=== PATIENT | male | born 1980 | race Caucasian/White ===

== ENCOUNTER 2018-01-17 19:01 | Inpatient (IN) | payer OTHER ==
--- NOTE | 2018-01-17 20:24 | ED ---
General Adult HPI - General Chief complaint: Extremity Problem,Nontraumatic Stated complaint: left great toe infection/diabetic Time Seen by Provider: 01/17/18 20:16 Source: patient, RN notes reviewed, old records reviewed Mode of arrival: ambulatory Limitations: no limitations - History of Present Illness Initial comments: This is a 37-year-old male to the ER for evaluation. Patient resents today for evaluation regards to foot pain, patient is a known diabetic with known left foot pain. Patient has foot ulcer for a year that has not been healing. Recently his left great toe is significantly swollen with redness and pain up his leg. Patient denies fevers. He has been receiving outpatient treatment with no improvement - Related Data Home Medications Medication Instructions Recorded Confirmed Acarbose [Precose] 25 mg PO BID 01/17/18 01/17/18 Aspirin EC [Ecotrin Low Dose] 81 mg PO DAILY 01/17/18 01/17/18 Carvedilol [Coreg] 25 mg PO BID 01/17/18 01/17/18 Diclofenac Sodium [Voltaren] 75 mg PO BID 01/17/18 01/17/18 Lisinopril [Zestril] 10 mg PO BID 01/17/18 01/17/18 [place]-3 Fatty Acids/Fish Oil [Fish 1 cap PO DAILY 01/17/18 01/17/18 Oil 1,000 mg Softgel] Omeprazole 20 mg PO DAILY 01/17/18 01/17/18 glipiZIDE [Glucotrol] 20 mg PO BID 01/17/18 01/17/18 metFORMIN HCL 1,000 mg PO BID 01/17/18 01/17/18 Allergies Allergy/AdvReac Type Severity Reaction Status Date / Time No Known Allergies Allergy Verified 01/17/18 20:19 Review of Systems ROS Statement: Those systems with pertinent positive or pertinent negative responses have been documented in the HPI. ROS Other: All systems not noted in ROS Statement are negative. Past Medical History Past Medical History: Diabetes Mellitus, Myocardial Infarction ([place]) History of Any Multi-Drug Resistant Organisms: None Reported Past Surgical History: Heart Catheterization Additional Past Surgical History / Comment(s): left knee Past Psychological History: No Psychological Hx Reported Smoking Status: Current every day smoker Past Alcohol Use History: None Reported Past Drug Use History: None Reported General Exam - General Exam Comments Initial Comments: Significant left great toe ulcer with surrounding cellulitis proximal, significant edema of left great toe Limitations: no limitations General appearance: alert, in no apparent distress Head exam: Present: atraumatic, normocephalic, normal inspection Eye exam: Present: normal appearance, PERRL, EOMI. Absent: scleral icterus, conjunctival injection, periorbital swelling ENT exam: Present: normal exam, mucous membranes moist Neck exam: Present: normal inspection. Absent: tenderness, meningismus, lymphadenopathy Respiratory exam: Present: normal lung sounds bilaterally. Absent: respiratory distress, wheezes, rales, rhonchi, stridor Cardiovascular Exam: Present: regular rate, normal rhythm, normal heart sounds. Absent: systolic murmur, diastolic murmur, rubs, gallop, clicks GI/Abdominal exam: Present: soft, normal bowel sounds. Absent: distended, tenderness, guarding, rebound, rigid Extremities exam: Present: normal inspection, full ROM, normal capillary refill. Absent: tenderness, pedal edema, joint swelling, calf tenderness Back exam: Present: normal inspection Neurological exam: Present: alert, oriented X3, CN II-XII intact Psychiatric exam: Present: normal affect, normal mood Skin exam: Present: warm, dry, intact, normal color. Absent: rash Course Vital Signs 01/17/18 19:38 Temperature 97.9 F Pulse Rate 83 Respiratory 18 Rate Blood Pressure 143/76 O2 Sat by Pulse 97 Oximetry Medical Decision Making - Medical Decision Making 37 male positive left foot ulcer with cellulitis felt outpatient treatment will admit for IV antibiotics and wound care - Radiology Data Radiology results: report reviewed (X-ray left foot negative for acute disease) , image reviewed Disposition Clinical Impression: Diabetic ulcer of left great toe, Cellulitis Disposition: ADMITTED IP TO THIS HOSP Condition: Good Is patient prescribed a controlled substance at d/c from ED?: No Referrals: Meek Warner Jr, [Primary Care Provider] - 1-2 days
[2018-01-17] MEDS ORDERED: VANCOMYCIN IV PER PHARMACY 1 EACH MISC MISCELLANE PRN (20:43)
[2018-01-17] MEDS ORDERED: SODIUM CHLORIDE 0.9% 1,000 ML IV STA (20:43)
[2018-01-17] MEDS ORDERED: VANCOMYCIN 2,500 MG in SODIUM CHLORIDE 0.9% 500 ML IVPB STA (20:49)
--- NOTE | 2018-01-17 21:08 | XR ---
EXAMINATION TYPE: XR foot complete LT DATE OF EXAM: 01/17/2018 COMPARISON: NONE HISTORY: Pain TECHNIQUE: 3 views FINDINGS: There are plantar and Achilles calcaneal spurs. Metatarsals are intact. I see no fracture n or dislocation. IMPRESSION: There is minimal spurring at the lateral first MP joint. No evidence of osteomyelitis. Ca lcaneal spurring.
[2018-01-17 21:56] LABS: Basophils # (A) 0.1 k/uL (0-0.2); Basophils % (A) 1 %; Eosinophils # (A) 0.4 k/uL (0-0.7); Eosinophils % (A) 5 %; HCT 41.2 % (39.0-53.0); HGB 13.5 gm/dL (13.0-17.5); Lymphocytes # (A) 2.2 k/uL (1.0-4.8); Lymphocytes % (A) 26 %; MCH 30.5 pg (25.0-35.0); MCHC 32.8 g/dL (31.0-37.0); MCV 92.8 fL (80.0-100.0); Mean Platelet Volume 7.5; Monocytes # (A) 0.7 k/uL (0-1.0); Monocytes % (A) 8 %; Neutrophils # (A) 4.9 k/uL (1.3-7.7); Neutrophils % (A) 58 %; Platelet Count 183 k/uL (150-450); RBC 4.44 m/uL (4.30-5.90); RDW 13.9 % (11.5-15.5); WBC 8.3 k/uL (3.8-10.6)
[2018-01-17 22:00] LABS: Partial Thromboplastin Time 22.2 sec (22.0-30.0); Prothrombin Time 9.8 sec (9.0-12.0)
[2018-01-17 22:01] LABS: ALT 75 U/L (21-72); AST 47 U/L (17-59); Alkaline Phosphatase 84 U/L (38-126); Anion Gap 9 mmol/L; Blood Urea Nitrogen 22 mg/dL (9-20); Calcium 9.3 mg/dL (8.4-10.2); Carbon Dioxide 23 mmol/L (22-30); Chloride 104 mmol/L (98-107); Glucose 269 mg/dL (74-99); Magnesium 1.5 mg/dL (1.6-2.3); Phosphorus 3.6 mg/dL (2.5-4.5); Potassium 4.3 mmol/L (3.5-5.1); Sodium 136 mmol/L (137-145); Total Bilirubin 0.3 mg/dL (0.2-1.3); Total Protein 6.4 g/dL (6.3-8.2)
[2018-01-17 22:21] LABS: Creatine Kinase 490 U/L (55-170)
[2018-01-17 22:33] LABS: Troponin I <0.012 ng/mL (0.000-0.034)
[2018-01-17 22:45] LABS: Creatine Kinase MB 3.2 ng/mL (0.0-2.4)
[2018-01-17 23:41] LABS: Glucose,Whole Blood 186 mg/dL (75-99)
[2018-01-17 23:50] VITALS: BMI 40.2
[2018-01-18] MEDS: VANCOMYCIN 2,000 MG in SODIUM CHLORIDE 0.9% 500 ML IVPB SCH ×3 (05:29→21:00)
[2018-01-18 07:15] LABS: Glucose,Whole Blood 189 mg/dL (75-99)
[2018-01-18] MEDS ORDERED: ACETAMINOPHEN TAB 325 MG TAB PO PRN (08:50)
[2018-01-18] MEDS ORDERED: Magnesium Replacement Protocol 1 EACH MISC MISCELLANE PRN (08:51)
[2018-01-18] MEDS ORDERED: NON-FORMULARY DRUG (Omega-3 Fatty Acids/Fish Oil [Fish Oil 1,000 Mg Softgel] 1 CAP) PO SCH (09:00)
[2018-01-18] MEDS: ETODOLAC 400 MG TAB PO SCH ×2 (09:45→21:59)
[2018-01-18] MEDS: ACARBOSE 25 MG TAB PO SCH ×2 (09:46→21:59)
[2018-01-18] MEDS: PANTOPRAZOLE 40 MG TABLET PO SCH (09:46)
[2018-01-18] MEDS: glipiZIDE 10 MG TAB PO SCH ×2 (09:47→17:17)
[2018-01-18] MEDS: LISINOPRIL 10 MG TAB PO SCH ×2 (09:47→21:59)
[2018-01-18] MEDS: ASPIRIN 81 MG PO SCH (09:47)
[2018-01-18] MEDS: metFORMIN 500 MG TAB PO SCH ×2 (09:47→17:55)
[2018-01-18] MEDS: CARVEDILOL 12.5 MG TAB PO SCH ×2 (09:49→17:17)
[2018-01-18] MEDS: MAGNESIUM SULFATE-D5W PMX 1 GM in DEXTROSE/WATER 1 100ML.BAG IVPB SCH ×2 (09:50→11:25)
[2018-01-18 11:53] LABS: Glucose,Whole Blood 294 mg/dL (75-99)
[2018-01-18] MEDS: INSULIN ASPART 100 UNIT/ML 1 ML 10 ML VIAL SQ SCH ×3 (12:15→20:59)
--- NOTE | 2018-01-18 14:47 | P.HPIM ---
History of Present Illness H&P Date: 01/18/18 Chief Complaint: left foot pain and swelling 37-year-old male who presented to the emergency room with a chief complaint of increased redness, swelling, and pain to his left great toe. Patient states he has had a non-healing wound to his toe since April 2017, but over the last few days it became more painful and red so he presented to the hospital for further evaluation. Patient denies fever or chills. Denies shortness of breath. Denies chest pain. Denies nausea or vomiting. The patient has a history of diabetes mellitus and myocardial infarction in 2005. He is a current cigarette smoker and reports smoking 10 cigarettes a day. X-ray left foot: Minimal spurring at the lateral first MP joint. No evidence of osteomyelitis. Calcaneal spurring. Laboratory data: WBC 8.3. Hemoglobin 13.5. Platelet count 183. Sodium 136. Potassium 4.3. BUN 22. Creatinine 0.99. Glucose 269. Phosphorus 3.6. Magnesium 1.5. AST 47. ALT 75. Total creatinine kinase 490. Troponin negative 1. The patient was started on vancomycin and IV fluids and admitted to the hospital under the care of Dr. Bailey. Review of Systems Those systems with pertinent positive or pertinent negative responses have been documented in the HPI Past Medical History Past Medical History: Diabetes Mellitus, Myocardial Infarction ([place]) Last Myocardial Infarction Date:: 2005 History of Any Multi-Drug Resistant Organisms: None Reported Past Surgical History: Heart Catheterization Additional Past Surgical History / Comment(s): left knee Past Psychological History: No Psychological Hx Reported Smoking Status: Current some day smoker Past Alcohol Use History: None Reported Past Drug Use History: None Reported - Past Family History Father Family Medical History: Congestive Heart Failure (CHF), CVA/TIA, Diabetes Mellitus Medications and Allergies Home Medications Medication Instructions Recorded Confirmed Type Acarbose [Precose] 25 mg PO BID 01/17/18 01/17/18 History Aspirin EC [Ecotrin Low Dose] 81 mg PO DAILY 01/17/18 01/17/18 History Carvedilol [Coreg] 25 mg PO BID 01/17/18 01/17/18 History Diclofenac Sodium [Voltaren] 75 mg PO BID 01/17/18 01/17/18 History Lisinopril [Zestril] 10 mg PO BID 01/17/18 01/17/18 History [place]-3 Fatty Acids/Fish Oil [Fish 1 cap PO DAILY 01/17/18 01/17/18 History Oil 1,000 mg Softgel] Omeprazole 20 mg PO DAILY 01/17/18 01/17/18 History glipiZIDE [Glucotrol] 20 mg PO BID 01/17/18 01/17/18 History metFORMIN HCL 1,000 mg PO BID 01/17/18 01/17/18 History Allergies Allergy/AdvReac Type Severity Reaction Status Date / Time No Known Allergies Allergy Verified 01/17/18 20:19 Physical Exam Vitals: Vital Signs Temp Pulse Pulse Resp BP BP Pulse Ox 01/18/18 05:21 97.6 F 68 16 144/75 97 01/18/18 00:00 16 01/17/18 23:26 97.8 F 70 16 144/65 95 01/17/18 23:19 97.9 F 74 17 150/72 96 01/17/18 19:38 97.9 F 83 18 143/76 97 Intake and Output 01/17/18 01/18/18 01/18/18 22:59 06:59 14:59 Other: Voiding Method Toilet Toilet # Voids 2 Weight 146.51 kg 146 kg GENERAL: This is a 37-year-old male in no apparent distress at the time of examination. Pleasant and cooperative. HEENT: Head is atraumatic, normocephalic. Pupils are equal, round, and reactive to light. Sclerae anicteric. Conjunctivae are clear. Mucus membranes of the mouth are moist. Neck is supple. RESPIRATORY: Clear to ausculation. No wheezes, rales, or rhonchi. No use of accessory muscles. Patient maintaining oxygen saturation greater than 92%. No chest wall tenderness is noted on palpation or with deep breathing. CARDIOVASCULAR: Regular rate and rhythm. S1 and S2 noted. No systolic or diastolic murmur auscultated. No JVD noted. No S3 or S4 noted. GASTROINTESTINAL: No distention noted. Abdomen soft and round. Normal active bowel sounds auscultated x 4 quadrants. No pain or tenderness noted upon palpation. INTEGUMENTARY: Erythema to left great toe. Small open wound to plantar surface of left great toe. Small amount of milky drainage noted. No cyanosis. No jaundice. No rashes noted. EXTREMITIES: 2+ peripheral pulses. No calf tenderness noted. NEUROLOGIC: Cranial nerves II-XII intact. PSYCHIATRIC: Awake, alert, and oriented X 3. Appropriate affect. Intact judgement and insight. Results CBC & Chem 7: 01/17/18 21:15 01/17/18 21:15 Labs: Abnormal Lab Results - Last 24 Hours (Table) 01/17/18 01/17/18 01/17/18 Range/Units 21:15 21:15 23:39 Sodium 136 L (137-145) mmol/L BUN 22 H (9-20) mg/dL Glucose 269 H (74-99) mg/dL POC Glucose (mg/dL) 186 H (75-99) mg/dL Magnesium 1.5 L (1.6-2.3) mg/dL ALT 75 H (21-72) U/L Total Creatine Kinase 490 H (55-170) U/L CK-MB (CK-2) 3.2 H* (0.0-2.4) ng/mL 01/18/18 Range/Units 07:11 Sodium (137-145) mmol/L BUN (9-20) mg/dL Glucose (74-99) mg/dL POC Glucose (mg/dL) 189 H (75-99) mg/dL Magnesium (1.6-2.3) mg/dL ALT (21-72) U/L Total Creatine Kinase (55-170) U/L CK-MB (CK-2) (0.0-2.4) ng/mL Thrombosis Risk Factor Assmnt - Choose All That Apply Any of the Below Risk Factors Present?: Yes Each Factor Represents 1 point: Obesity (BMI >25) Thrombosis Risk Factor Assessment Total Risk Factor Score: 1 Thrombosis Risk Factor Assessment Level: Low Risk Assessment and Plan Plan: ASSESSMENT: Diabetic ulcer of left great toe, infected, r/o osteomyelitis Diabetes mellitus, type II Hyperglycemia, secondary to uncontrolled diabetes mellitus Myocardial infarction in 2005 Morbid obesity: BMI 40.2 Nicotine dependence, patient is a current cigarette smoker Hypomagnesemia PLAN: Consult infectious disease, Dr. Guaman Continue antibiotics Continue IV fluids Replace magnesium. Repeat in AM Consult medical educator and dietitian secondary to uncontrolled diabetes EVELIO of lower extremity MRI of left foot with contrast Obtain wound culture of left great toe Daily dressing changes to left great toe: Aquacel silver to open wound, silvadene to reddened areas, and then wrap with gauze Consult social work to assist patient in applying for insurance Home meds as appropriate Monitor labs GI prophylaxis: Protonix 40 mg PO Daily DVT prophylaxis: SCDs to bilateral LE Monitor vital signs and address as appropriate Discharge planning: Patient to return home when stable Further recommendations pending patient's course Nurse practitioner note has been reviewed by physician. Signing provider agrees with the documented findings, assessment, and plan of care.
[2018-01-18] MEDS: NICOTINE 21MG/24HR PATCH TRANSDERM SCH (15:14)
[2018-01-18] MEDS: SODIUM CHLORIDE 0.9% 1,000 ML IV SCH (15:50)
[2018-01-18 16:59] LABS: Glucose,Whole Blood 212 mg/dL (75-99)
[2018-01-18 18:45] LABS: Hemoglobin A1C 9.8 % (4.0-6.0)
[2018-01-18 20:00] LABS: Glucose,Whole Blood 247 mg/dL (75-99)
--- NOTE | 2018-01-18 22:31 | MR ---
EXAMINATION TYPE: MR foot LT wo/w con DATE OF EXAM: 01/18/2018 COMPARISON: Left foot x-ray January 17, 2018 HISTORY: Pain and non-healing wound at the LT great toe x7 months, worse the past 2 days. CONTRAST: Standard multiplanar, multisequence MRI departmental protocol utilizing 14.5 mL intravenous Gadavist gadolinium contrast. FINDINGS: There is heterogeneous subcutaneous edema in the first toe beginning at metacarpal head ext ending through the proximal and distal phalanx. There is ulceration along the plantar surface seen be st sagittal image 18 series 401. The vitamin E marker is placed along the medial plantar surface caus ing artifacts seen best axial series 901 image 8. There is some heterogeneous increased T2 signal inv olving the distal two thirds of the first distal phalanx seen best sagittal STIR image 14 and T2 ben nal weighted images. Vague areas of diminished T1 signal with enhancement are noted involving distal one third of the distal first phalanx for reference coronal series 601 and series 1101 images 4 throu gh 6 and sagittal images 13 through 15 series 401 and 1001. Enhancement in the surrounding soft tissu e for reference polar surface sagittal image 14 is noted consistent with adjacent cellulitis. There is marked flexion in the remainder of second through fifth toes without abnormal edema or enhan cement. IMPRESSION: Findings consistent with abnormal bone marrow edema involving the first distal phalanx with acute ost eomyelitis and adjacent cellulitis involving distal one third of first distal phalanx.
[2018-01-19] MEDS ORDERED: ACETAMINOPHEN TAB 325 MG TAB ONE (00:55)
[2018-01-19 03:42] LABS: Glucose,Whole Blood 216 mg/dL (75-99)
[2018-01-19] MEDS: VANCOMYCIN 2,000 MG in SODIUM CHLORIDE 0.9% 500 ML IVPB SCH ×2 (05:45→15:30)
--- NOTE | 2018-01-19 06:55 | P.CONS ---
History of Present Illness - Reason for Consult Consult date: 01/18/18 - Chief Complaint Pain left foot - History of Present Illness 37-year-old male who has a long-standing history of diabetes, mild peripheral neuropathy and degenerative joint disease presents to hospital with worsening of pain and swelling erythema to the left foot at the great toe. Relates that he's had an ulceration present on the toe for the last many months , has been receiving some wound care and antibiotic therapy, but now has had a significant worsening of this ulceration with the onset of the pain swelling and erythema to the foot. Because of the change he presented to the emergency center and was admitted with a cellulitis of the foot. 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 He does not state that he wears diabetic boots, is not able to recall exactly how the ulceration started but has not been improving as of late. He does believe he wasn't feeling very well for a few days before coming to Hospital also although cannot relate to high-grade fever did not have chills and is not clear if his blood sugars were increasing. Review of Systems HEENT:Denies headache or acute visual change. Denies sinus or mouth discomforts. Denies neck stiffness or pain. Denies significant oral cavity pain. Denies difficulty on swallowing. Lungs: Denies significant shortness of breath, cough, sputum production, or hemoptysis. Cardiovascular: Denies significant shortness of breath, chest pain, chest wall pain, orthopnea, dyspnea on exertion, syncope Gastrointestinal:Denies nausea, vomiting, diarrhea, constipation, hematemesis, melena, hematochezia. No no significant change of bowel habit noticed. Musculoskeletal: Has chronic musculoskeletal pain especially to the lower back and the legs, has had prior surgery right knee which gives him troubles also Skin: As per the HPI ulceration left foot great toe Neuro: Denies headache or visual change. Does have some peripheral neuropathy Psychiatric:Denies anxiety or depression. Endocrine: Denies significant fatigue, denies significant weight loss or weight gain. Past Medical History Past Medical History: Diabetes Mellitus, Myocardial Infarction (IA) Last Myocardial Infarction Date:: 2005 History of Any Multi-Drug Resistant Organisms: None Reported Past Surgical History: Heart Catheterization Additional Past Surgical History / Comment(s): left knee Past Psychological History: No Psychological Hx Reported Additional Psychological History / Comment(s): The patient is single, does have a family member that lives with him at times. He has no children. Is an intermittent tobacco smoker. Denies significant alcohol or recreational drug use. No experience. No international travel. No animal exposures Smoking Status: Current some day smoker Past Alcohol Use History: None Reported Past Drug Use History: None Reported - Past Family History Father Family Medical History: Congestive Heart Failure (CHF), CVA/TIA, Diabetes Mellitus Medications and Allergies Home Medications and Allergies Comment(s): Current Medications Acarbose (Precose) 25 mg PO BID [facility] Last Admin: 01/18/18 21:59 Dose: Not Given Acetaminophen (Tylenol Tab) 650 mg PO Q4HR PRN PRN Reason: Fever and/ or Pain Aspirin (Aspirin) 81 mg PO DAILY [facility] Last Admin: 01/18/18 09:47 Dose: 81 mg Carvedilol (Coreg) 25 mg PO AC-BID [facility] Last Admin: 01/18/18 17:17 Dose: 25 mg Etodolac (Lodine) 400 mg PO BID [facility] Last Admin: 01/18/18 21:59 Dose: Not Given Glipizide (Glucotrol) 20 mg PO AC-BID [facility] Last Admin: 01/18/18 17:17 Dose: 20 mg Vancomycin HCl 2,000 mg/ (Sodium Chloride) 500 mls @ 167 mls/hr IVPB Q8H [facility] Last Admin: 01/19/18 05:45 Dose: 167 mls/hr Sodium Chloride (Saline 0.9%) 1,000 mls @ 50 mls/hr IV .Q20H [facility] Last Admin: 01/18/18 15:50 Dose: Not Given Insulin Aspart (Novolog) 0 unit SQ ACHS [facility]; Protocol Last Admin: 01/18/18 20:59 Dose: 5 unit Lisinopril (Zestril) 10 mg PO BID [facility] Last Admin: 01/18/18 21:59 Dose: Not Given Metformin HCl (Glucophage) 1,000 mg PO AC-BID [facility] Last Admin: 01/18/18 17:55 Dose: 1,000 mg Miscellaneous Information (Magnesium Per Protocol) 1 each MISCELLANE DAILY PRN ; Protocol PRN Reason: Per Protocol Miscellaneous Information (Vancomycin Trough Due) 0 each MISCELLANE DIRECTED ONE Stop: 01/19/18 13:01 Nicotine (Habitrol 21mg/24hr Patch) 1 patch TRANSDERM DAILY [facility] Last Admin: 01/18/18 15:14 Dose: 1 patch Pantoprazole Sodium (Protonix) 40 mg PO AC-BRKFST [facility] Last Admin: 01/18/18 09:46 Dose: 40 mg Silver Sulfadiazine (Silvadene Cream) 1 applic TOPICAL DAILY [facility] Last Admin: 01/18/18 14:04 Dose: 1 applic Home Medications Medication Instructions Recorded Confirmed Type Acarbose [Precose] 25 mg PO BID 01/17/18 01/17/18 History Aspirin EC [Ecotrin Low Dose] 81 mg PO DAILY 01/17/18 01/17/18 History Carvedilol [Coreg] 25 mg PO BID 01/17/18 01/17/18 History Diclofenac Sodium [Voltaren] 75 mg PO BID 01/17/18 01/17/18 History Lisinopril [Zestril] 10 mg PO BID 01/17/18 01/17/18 History Risingsun-3 Fatty Acids/Fish Oil [Fish 1 cap PO DAILY 01/17/18 01/17/18 History Oil 1,000 mg Softgel] Omeprazole 20 mg PO DAILY 01/17/18 01/17/18 History glipiZIDE [Glucotrol] 20 mg PO BID 01/17/18 01/17/18 History metFORMIN HCL 1,000 mg PO BID 01/17/18 01/17/18 History Allergies Allergy/AdvReac Type Severity Reaction Status Date / Time No Known Allergies Allergy Verified 01/17/18 20:19 Physical Exam Vitals: Vital Signs Temp Pulse Pulse Resp BP Pulse Ox 01/18/18 21:14 97.3 F L 64 16 143/64 97 01/18/18 15:48 71 16 01/18/18 15:00 97.8 F 71 16 128/63 96 Intake and Output 01/18/18 01/18/18 01/19/18 14:59 22:59 06:59 Intake Total 2600 590 590 Balance 2600 590 590 Intake: Intake, IV Titration 1500 Amount Magnesium Sulfate-D5w Pmx 200 1 gm In Dextrose/Water 1 100ml.bag @ 100 mls/hr IVPB Q1H [facility] Rx#: [id number] Sodium Chloride 0.9% 1, 800 000 ml @ 100 mls/hr IV . Q10H [facility] Rx#:[id number] Vancomycin 2,000 mg In 500 Sodium Chloride 0.9% 500 ml @ 167 mls/hr IVPB Q8H [facility] Rx#:[id number] Oral 1100 590 590 Other: Voiding Method Toilet Toilet # Voids 3 2 1 Weight 146 kg Pleasant 37-year-old male of a large build HEENT: Anicteric conjunctiva are pink and moist nasal mucosa grossly intact without significant lesions, there is no thrush. Neck: The neck is supple without significant lymphadenopathy or thyromegaly. Lungs: Good bilateral air entry without significant crackles or wheezing. There is no significant bronchial sounds. There is no egophony or dullness. Heart: Regular rate and rhythm with an audible S1-S2, no S3 no S4. There is no significant murmur click or rub, PMI was nondisplaced. Abdomen: Mildly obese Positive bowel sounds soft and nontender without palpable masses or organomegaly. There was no guarding or rebound. Extremities: The upper extremities have excellent pulses they are symmetric, no significant petechiae or telangiectasia. No splinter hemorrhages were noted. Right lower extremity is intact without lesions. Left lower extremity reveals evidence of the swelling to the left foot which does not extend above the ankle however there is a somewhat dense erythema that begins at the great toe and does spread in the center just above the ankle. There is loss of visualization of the bony landmarks and vascular structures, because of the swelling. There is ulceration present on the plantar surface of the left great toe measuring at 1.4 x 1.4 x 0.3 there is significant slough at the base, there is callus scant drainage without significant odor. She has noted there is no erythema that does ascend just above the ankle it is tender and there is no significant left inguinal lymphadenopathy and no other abnormal lymph nodes are noted at this time Neuro: Awake alert oriented to person place and time. There are no acute new gross focal sensory motor deficits. Patient has intact gross sensation to the bilateral lower extremities at the feet Results CBC & Chem 7: 01/17/18 21:15 01/17/18 21:15 Labs: Abnormal Lab Results - Last 24 Hours (Table) 01/17/18 01/18/18 01/18/18 Range/Units 21:15 07:11 11:49 POC Glucose (mg/dL) 189 H 294 H (75-99) mg/dL Hemoglobin A1c 9.8 H (4.0-6.0) % 01/18/18 01/18/18 01/19/18 Range/Units 16:53 19:59 00:42 POC Glucose (mg/dL) 212 H 247 H 216 H (75-99) mg/dL Hemoglobin A1c (4.0-6.0) % Microbiology - Last 24 Hours (Table) 01/18/18 13:40 Gram Stain - Preliminary Toe - Left First Wound Culture - Preliminary 01/17/18 21:15 Blood Culture - Preliminary Blood No Growth after 24 hours 01/18/18 14:00 Anaerobic Culture - Preliminary Toe - Left First Microbiology 01/18/18 13:40 Toe - Left First Gram Stain - Preliminary 01/18/18 13:40 Toe - Left First Wound Culture - Preliminary 01/17/18 21:15 Blood Blood Culture - Preliminary No Growth after 24 hours 01/18/18 14:00 Toe - Left First Anaerobic Culture - Preliminary Assessment and Plan (1) Cellulitis Current Visit: Yes Status: Acute Code(s): L03.90 - CELLULITIS, UNSPECIFIED SNOMED Code(s): 026626282 (2) Diabetic ulcer of left foot associated with diabetes mellitus due to underlying condition, with fat layer exposed Narrative/Plan: Pleasant 37-year-old male who does have a history of diabetes with last hemoglobin A1c patient reports was about 9 relates that he's been having nonhealing ulceration to the left foot great toe plantar surface. Despite local care, and some intermittent antibiotic therapy that has not been improving. With the onset of pain, swelling and a significant cellulitis to the foot and not feeling as well as usual he presented to the emergency center and has been admitted for this progressive cellulitis that failed oral outpatient antibiotic therapy. The patient relates that's since coming to Hospital he started to feel better already. We discussed the elevation antibiotic therapy improvement of blood sugar are all helpful in the treatment of this process. For antibiotic therapy at this time while cultures are pending vancomycin has been initiated and we will also add in piperacillin tazobactam, with failure of outpatient antibiotic therapy gram-negative infection such as Pseudomonas with be considered and with the diabetic foot ulceration concerns to anaerobic pathogens also. Local wound care has been applied personally with the Aquacel silver which can be applied every other day. MRI is being requested to evaluate for underlying osteomyelitis. Patient will need some type of advanced offloading, likely will follow-up in the wound healing center for total contact casting will be applied. It has not been done in the outpatient setting will also ask for arterial Dopplers to be performed while he is in hospital. Will need to have the perioperative educator see him and arrange for outpatient diabetic education. If the patient has osteomyelitis he has been informed that he will need outpatient intravenous antibiotic therapy and follow-up in the wound healing Center. The cellulitis to the foot instructed related to the ulceration and failure of prior antibiotic therapy. Current Visit: Yes Status: Acute Code(s): E08.621 - DIABETES MELLITUS DUE TO UNDERLYING CONDITION W FOOT ULCER; L97.522 - NON-PRS CHRONIC ULCER OTH PRT LEFT FOOT W FAT LAYER EXPOSED SNOMED Code(s): 193783579
[2018-01-19 07:06] LABS: Glucose,Whole Blood 181 mg/dL (75-99)
[2018-01-19 07:30] LABS: Basophils % (A) 1 %; Eosinophils # (A) 0.4 k/uL (0-0.7); Eosinophils % (A) 7 %; HCT 39.3 % (39.0-53.0); HGB 13.1 gm/dL (13.0-17.5); Lymphocytes # (A) 1.5 k/uL (1.0-4.8); Lymphocytes % (A) 28 %; MCH 31.2 pg (25.0-35.0); MCHC 33.3 g/dL (31.0-37.0); MCV 93.7 fL (80.0-100.0); Mean Platelet Volume 7.4; Monocytes # (A) 0.5 k/uL (0-1.0); Monocytes % (A) 9 %; Neutrophils # (A) 2.7 k/uL (1.3-7.7); Neutrophils % (A) 52 %; Platelet Count 139 k/uL (150-450); WBC 5.3 k/uL (3.8-10.6)
[2018-01-19 07:56] LABS: Anion Gap 7 mmol/L; Blood Urea Nitrogen 15 mg/dL (9-20); Calcium 8.9 mg/dL (8.4-10.2); Carbon Dioxide 24 mmol/L (22-30); Chloride 108 mmol/L (98-107); Glucose 187 mg/dL (74-99); Magnesium 1.6 mg/dL (1.6-2.3); Potassium 4.8 mmol/L (3.5-5.1); Sodium 139 mmol/L (137-145)
[2018-01-19] MEDS: ETODOLAC 400 MG TAB PO SCH ×2 (08:42→20:59)
[2018-01-19] MEDS: metFORMIN 500 MG TAB PO SCH ×2 (08:43→17:19)
[2018-01-19] MEDS: ACARBOSE 25 MG TAB PO SCH ×2 (08:44→20:59)
[2018-01-19] MEDS: glipiZIDE 10 MG TAB PO SCH ×2 (08:44→17:19)
[2018-01-19] MEDS: CARVEDILOL 12.5 MG TAB PO SCH ×2 (08:44→17:19)
[2018-01-19] MEDS: PANTOPRAZOLE 40 MG TABLET PO SCH (08:44)
[2018-01-19] MEDS: ASPIRIN 81 MG PO SCH (08:45)
[2018-01-19] MEDS: INSULIN ASPART 100 UNIT/ML 1 ML 10 ML VIAL SQ SCH ×4 (08:55→21:27)
[2018-01-19] MEDS: PIPERACILLIN-TAZOBACTAM 3.375 GM in DEXTROSE/WATER 1 50ML.BAG IVPB SCH ×2 (08:55→17:35)
[2018-01-19] MEDS: LISINOPRIL 10 MG TAB PO SCH ×2 (09:44→20:59)
[2018-01-19] MEDS ORDERED: LIDOCAINE 2% SYG (PF) 100 MG/5 ML MISCELLANE ONE (10:21)
[2018-01-19 11:28] LABS: Glucose,Whole Blood 227 mg/dL (75-99)
--- NOTE | 2018-01-19 11:30 | IR ---
PICC LINE PLACEMENT: HISTORY: Infection requiring long-term antibiotic therapy PROCEDURE: Ultrasound and fluoroscopic guidance of PICC line placement. COMPLICATIONS: None ANESTHESIA: 1. 1% Lidocaine locally. FINDINGS/TECHNIQUE: The procedure was explained to the patient. The risks, complications, benefits and alternatives were discussed and any questions were answered. Informed consent was obtained. The patient was placed supine on the fluoroscopic table and prepped and draped in the usual sterile [facility] ion. Utilizing a 21 gauge needle and sonographic and fluoroscopic guidance, access in the vein was achieved and there is placement of a 0.018 guidewire. The vein is patent. A 4-F sheath was placed o anne the guidewire. The guidewire and dilator were removed and a 4-F. PICC line was placed through th e sheath with the tip at the level of the SVC. The sheath was removed, the catheter was flushed and sutured into position. The patient was stable throughout the procedure and remained stable upon disc harge from the Department of Radiology. The vein puncture was patent under ultrasound. A anand scale image was obtained to document patency of the vein punctured. All elements of the maximal barrier technique were utilized. FLUOROSCOPY TIME: 0.6 minutes, one image submitted IMPRESSION: Successful PICC line placement under ultrasound and fluoroscopic guidance.
--- NOTE | 2018-01-19 11:32 | P.SQMSDB ---
SubQ & Muscle Debridement - Subcutaneous & Muscle Debridement Date of Service: 01/19/18 Subcutaneous & Muscle Debridement: PREOPERATIVE DIAGNOSES: Bejarano grade 3 diabetic ulcer left great toe POSTOPERATIVE DIAGNOSES: same PROCEDURE: Excisional surgical debridement into muscle DESCRIPTION: The full-thickness ulcer to the left great toe measuring and 1.4 x 1.4 x 0.3 cm was debrided into the subcutaneous tissues today to remove yellow fibrinous slough and devitalized tissue from the wound. Post debridement measurements are 1.4 x 1.4 x 1.5 cm There are obvious signs of infection today. Her positive wound cultures. There is purulent drainage from the wound when palpated. Pressure and offloading to the wound will inhibit healing or promote adjacent tissue breakdown. EXTENT OF NECROTIC TISSUE: Moderate DEGREE OF EPITHELIALIZATION: Moderate CHARACTER OF WOUND AFTER DEBRIDEMINT: bloody and granular INSTRUMENTATION: Sharp curette BLEEDING: Minimal and controlled with pressure ANESTHESIA: None DRESSING: AQUACEL ag rope packed into the wound. We'll plan offloading with a total contact cast once his EVELIO is available. Patient tolerated today's procedure well. The patient will be reevaluated in 1 week.
[2018-01-19] MEDS: NICOTINE 21MG/24HR PATCH TRANSDERM SCH (12:36)
[2018-01-19] MEDS: SODIUM CHLORIDE 0.9% 1,000 ML IV SCH (12:38)
[2018-01-19] MEDS ORDERED: VANCOMYCIN TROUGH DUE 1 EACH MISC MISCELLANE ONE (13:00)
--- NOTE | 2018-01-19 13:04 | P.PN ---
Subjective Progress Note Date: 01/19/18 37-year-old male who presented to the emergency room with a chief complaint of increased redness, swelling, and pain to his left great toe. Patient states he has had a non-healing wound to his toe since April 2017, but over the last few days it became more painful and red so he presented to the hospital for further evaluation. Patient denies fever or chills. Denies shortness of breath. Denies chest pain. Denies nausea or vomiting. The patient has a history of diabetes mellitus and myocardial infarction in 2005. He is a current cigarette smoker and reports smoking 10 cigarettes a day. X-ray left foot: Minimal spurring at the lateral first MP joint. No evidence of osteomyelitis. Calcaneal spurring. Laboratory data: WBC 8.3. Hemoglobin 13.5. Platelet count 183. Sodium 136. Potassium 4.3. BUN 22. Creatinine 0.99. Glucose 269. Phosphorus 3.6. Magnesium 1.5. AST 47. ALT 75. Total creatinine kinase 490. Troponin negative 1. The patient was started on vancomycin and IV fluids and admitted to the hospital under the care of Dr. Bailey. 01/19/2018 Patient seen and examined at the bedside with Dr. Bailey. Patient underwent MRI of left foot yesterday which revealed evidence of osteomyelitis. The patient underwent a PICC line insertion to the left arm today. Dr. Bailey debrided left toe at the bedside (see procedure note dictated by Dr. Bailey) . Patients hemoglobin A1C is 9.8%. Patient insists his blood sugars are always within normal limits at home. clinical nurse educator consulted and at the bedside to speak with patient. Social work and case management are working to obtain Medicaid for patient as he will require daily visits to the [facility] for antibiotic infusions. Female friend at the bedside expresses concerns of depression in patient. She states "Rae known him forever and I can tell he is already spiraling downhill. His attitude is changing. If he loses his toe, he will just completely give up". Friend asking for psychiatry consult. Objective - Vital Signs Vital signs: Vital Signs Temp 98.1 F 01/19/18 09:46 Pulse 70 01/19/18 09:46 Resp 18 01/19/18 09:46 BP 146/78 01/19/18 09:46 Pulse Ox 97 01/19/18 09:46 Intake & Output 01/18/18 01/19/18 01/19/18 18:59 06:59 18:59 Intake Total 2600 1180 Balance 2600 1180 Weight 146 kg Intake: Intake, IV Titration 1500 Amount Magnesium Sulfate-D5w Pmx 200 1 gm In Dextrose/Water 1 100ml.bag @ 100 mls/hr IVPB Q1H [facility] Rx#: [id number] Sodium Chloride 0.9% 1, 800 000 ml @ 100 mls/hr IV . Q10H [facility] Rx#:[id number] Vancomycin 2,000 mg In 500 Sodium Chloride 0.9% 500 ml @ 167 mls/hr IVPB Q8H [facility] Rx#:[id number] Oral 1100 1180 Other: Voiding Method Toilet Toilet Toilet # Voids 3 1 - Exam GENERAL: This is a 37-year-old male in no apparent distress at the time of examination. Pleasant and cooperative. HEENT: Head is atraumatic, normocephalic. Pupils are equal, round, and reactive to light. Sclerae anicteric. Conjunctivae are clear. Mucus membranes of the mouth are moist. Neck is supple. RESPIRATORY: Clear to ausculation. No wheezes, rales, or rhonchi. No use of accessory muscles. Patient maintaining oxygen saturation greater than 92%. No chest wall tenderness is noted on palpation or with deep breathing. CARDIOVASCULAR: Regular rate and rhythm. S1 and S2 noted. No systolic or diastolic murmur auscultated. No JVD noted. No S3 or S4 noted. GASTROINTESTINAL: No distention noted. Abdomen soft and round. Normal active bowel sounds auscultated x 4 quadrants. No pain or tenderness noted upon palpation. INTEGUMENTARY: Erythema and swelling to left great toe. Small open wound to plantar surface of left great toe. Small amount of purulent drainage noted. No cyanosis. No jaundice. No rashes noted. EXTREMITIES: 2+ peripheral pulses. No calf tenderness noted. NEUROLOGIC: Cranial nerves II-XII intact. PSYCHIATRIC: Awake, alert, and oriented X 3. Appropriate affect. Intact judgement and insight. - Labs CBC & Chem 7: 01/19/18 06:46 01/19/18 06:46 Labs: Abnormal Lab Results - Last 24 Hours (Table) 01/17/18 01/18/18 01/18/18 Range/Units 21:15 16:53 19:59 RBC (4.30-5.90) m/uL Plt Count (150-450) k/uL Chloride (98-107) mmol/L Glucose (74-99) mg/dL POC Glucose (mg/dL) 212 H 247 H (75-99) mg/dL Hemoglobin A1c 9.8 H (4.0-6.0) % 01/19/18 01/19/18 01/19/18 Range/Units 00:42 06:46 06:46 RBC 4.20 L (4.30-5.90) m/uL Plt Count 139 L (150-450) k/uL Chloride 108 H (98-107) mmol/L Glucose 187 H (74-99) mg/dL POC Glucose (mg/dL) 216 H (75-99) mg/dL Hemoglobin A1c (4.0-6.0) % 01/19/18 01/19/18 Range/Units 07:02 11:16 RBC (4.30-5.90) m/uL Plt Count (150-450) k/uL Chloride (98-107) mmol/L Glucose (74-99) mg/dL POC Glucose (mg/dL) 181 H 227 H (75-99) mg/dL Hemoglobin A1c (4.0-6.0) % Microbiology - Last 24 Hours (Table) 01/18/18 13:40 Gram Stain - Preliminary Toe - Left First Wound Culture - Preliminary Gram Neg Bacilli Gram Neg Bacilli#2 01/17/18 21:15 Blood Culture - Preliminary Blood No Growth after 24 hours 01/18/18 14:00 Anaerobic Culture - Preliminary Toe - Left First Assessment and Plan Plan: ASSESSMENT: Acute osteomyelitis of left great toe Diabetic ulcer of left great toe Diabetes mellitus, type II, uncontrolled, hemoglobin A1C 9.8% Hyperglycemia, secondary to uncontrolled diabetes mellitus Myocardial infarction in 2005 Morbid obesity: BMI 40.2 Nicotine dependence, patient is a current cigarette smoker Hypomagnesemia PLAN: Infectious disease, Dr. Guaman, on consult. Appreciate recommendations and input Continue antibiotics Replace magnesium. Repeat in AM clinical nurse educator and dietitian on consult secondary to uncontrolled diabetes Wound care: pack left great toe wound with aquacel rope, silvadene to reddened areas, then wrap with gauze Consult psychiatry for evaluation Home meds as appropriate Monitor labs GI prophylaxis: Protonix 40 mg PO Daily DVT prophylaxis: SCDs to bilateral LE Monitor vital signs and address as appropriate Further recommendations pending patient's course Continue process for approval of Medicaid Anticipate discharge home within the next 24-48 hours. Patient will require daily visits to [facility] for antibiotic infusions. Nurse practitioner note has been reviewed by physician. Signing provider agrees with the documented findings, assessment, and plan of care.
[2018-01-19] MEDS: MAGNESIUM SULFATE-D5W PMX 1 GM in DEXTROSE/WATER 1 100ML.BAG IVPB SCH ×2 (15:59→16:55)
--- NOTE | 2018-01-19 16:02 | P.CN ---
Psychiatric Consult - . Consult date: 01/19/18 Consult:: 01/19/18 15:52 Identification: Patient is a 37-year-old male who presented to the emergency room because of an ulcer on his toe that was not healing and he states had begun to turn red the beginning of the week. Reason for Consult: Possible depression family thinks patient is spiraling downward History of Present Illness: Patient's chart was reviewed the patient was seen and interviewed in his room no family members were present. Patient states that he is not depressed, states that he was talking with a friend of his mothers about his to and making a joke states that his mother and friend became quite upset. Patient states the lesion on his toe appeared in April of last year states that there was no injury to his toe. He states that he been seeing the doctor and doing what the doctor had told him to and it had continued until the beginning of this week when he began to turn red and hurt and so he presented to the emergency room. Patient states he was diagnosed with diabetes at the age of 16 and for many years was maintained on metformin and then most recently has been on multiple oral medications at home. He states that he tests his blood sugar 2 or more times a day most usually after meals and they run anywhere from 230-240. He states that he tries to watch his diet and stays active by walking several times a week prior to his toe ulcer. Patient does not endorse a history of depressive symptoms and states he is not currently depressed, not feeling hopeless or helpless and states that he is frustrated that he was doing what he was told to due to the toe ulcer which has not been healing. Patient does not endorse a history of being treated for depression in the past, no current suicidal ideation and no history of suicide attempts. Patient does not endorse a history of psychotic symptoms or manic symptoms. Past Psychiatric History: Patient states that after his father's his mother's PCP gave him a "nerve pill" and states that he stopped it after 2 days because it made him feel blunted. Past Medical/Surgical History: Diabetes, myocardial infarction (he states that he had this right after he was told of his father's diagnosis of cancer), hypertension, a right knee ligament repair Family History: he denies any history of psychiatric disorders in the family, substance or alcohol use and no completed suicides Social History: patient was born to parents, his father of cancer in his mother is alive. He has 2 siblings. He quit school in the 11th grade because he had a son at the age of 14 and began working to support him. 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 His son is 21 years of age and is in [place]. He has never been . Patient states that he currently is living with his mother in her home, and does have a girlfriend. He denies any financial problems and no abuse history. Substance Use History: patient states that he used alcohol in the past occasionally on the weekends and has not used any alcohol since 2011. Patient denies any drug history no IV drug use and states he does use tobacco products. Legal History: patient had a DUI in 2011 Mental status: Appearance/Attitude: Patient is casually dressed, lying in a hospital bed in no acute distress makes good eye contact and was cooperative. Behavior: Patient does not exhibit any psychomotor agitation or retardation. Speech/Language: Patient's speech is spontaneous of normal volume and rhythm and he is coherent. Thought Process: Patient is goal-directed there is no evidence of loose association or flight of ideas Thought Content: Patient denies any auditory or visual hallucinations and no delusions or paranoid ideation were elicited. Patient denies feeling hopeless helpless or overwhelmed. Patient states that he is frustrated that he was following instructions from his primary care physician regarding how to care for the toe ulcer that he has had since April of last year and states that it was not healing state more or less same until last Tuesday when he began to turn red, more painful and he sought treatment in the emergency room. Patient states he's been sleeping and eating well Suicidal/Homicidal Ideation: Patient denies any current suicidal or homicidal ideation. Sensorium/Cognition: Patient is alert and oriented to person, place, and time and his recent and remote memory are grossly intact Mood/Affect: Patient's mood is euthymic and his affect is appropriate Insight/Judgment: Patient's insight and judgment are intact. Assessment: asked to see the patient because family thought that he is possibly depressed and spiraling downward, patient has been diagnosed as diabetic since the age of 16 and has been maintained on oral medication. Patient developed a toe ulcer in April of 2017 and has been seeing his primary care physician for treatment. Patient states that he was following directions of his primary care doctor and the ulcer was unchanged until last Tuesday when he began to turn red and become more painful and so he presented to the emergency room for care. Patient does not endorse a history of depressive symptoms, psychotic symptoms manic symptoms or anxiety symptoms. Patient states that he is aware of diabetic teaching, was active prior to the toe ulcer beginning, does watch his diet and does check his blood sugars. Diagnosis: No psychiatric diagnosis Plan: patient has no history or current symptoms of depression, ryann, anxiety or psychosis and I see no reason to begin any psychotropic medication. Patient also does not voice any concerns he is not overwhelmed, he denies that he has been spiraling downward and there is no reason for referral for outpatient counseling. Patient was following the advice of his primary care physician and how to care for the toe ulcer and when he ulcer changed and became red and inflamed the patient did present to the emergency room for care. Patient states that he is aware of what he needs to do to control his diabetes. I will sign off the case.
[2018-01-19 17:01] LABS: Glucose,Whole Blood 198 mg/dL (75-99)
[2018-01-19] MEDS ORDERED: CALCIUM CARBONATE 500 MG CHEWABLE PO PRN (19:10)
[2018-01-19 20:37] LABS: Glucose,Whole Blood 203 mg/dL (75-99)
[2018-01-19] MEDS: INSULIN DETEMIR 100 UNIT/ML 10 ML VIAL SQ SCH (21:27)
[2018-01-19] MEDS: VANCOMYCIN 2,250 MG in SODIUM CHLORIDE 0.9% 500 ML IVPB SCH (21:34)
--- NOTE | 2018-01-19 23:39 | P.PN ---
Subjective Progress Note Date: 01/19/18 37-year-old male who has a long-standing history of diabetes, mild peripheral neuropathy and degenerative joint disease presents to hospital with worsening of pain and swelling erythema to the left foot at the great toe. Relates that he's had an ulceration present on the toe for the last many months , has been receiving some wound care and antibiotic therapy, but now has had a significant worsening of this ulceration with the onset of the pain swelling and erythema to the foot. Because of the change he presented to the emergency center and was admitted with a cellulitis of the foot. 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 He does not state that he wears diabetic boots, is not able to recall exactly how the ulceration started but has not been improving as of late. He does believe he wasn't feeling very well for a few days before coming to Hospital also although cannot relate to high-grade fever did not have chills and is not clear if his blood sugars were increasing. 01/19/2018 patient has no new complaints, has mother and friend present with many questions. Patient was not understanding that diabetes causes foot ulcers. Print out from reference is give stating as number one cause of hospitalization in the [place] for diabetics. Objective - Vital Signs Vital signs: Vital Signs Temp 97.8 F 01/19/18 20:40 Pulse 63 01/19/18 20:40 Resp 18 01/19/18 20:40 BP 148/69 01/19/18 20:40 Pulse Ox 97 01/19/18 20:40 Intake & Output 01/19/18 01/19/18 01/20/18 06:59 18:59 06:59 Intake Total 1180 360 500 Balance 1180 360 500 Intake: Intake, IV Titration 500 Amount Vancomycin 2,250 mg In 500 Sodium Chloride 0.9% 500 ml @ 167 mls/hr IVPB Q8H [facility] Rx#:[id number] Oral 1180 360 Other: Voiding Method Toilet Toilet Toilet # Voids 1 3 1 - Exam Pleasant 37-year-old male of a large build HEENT: Anicteric conjunctiva are pink and moist nasal mucosa grossly intact without significant lesions, there is no thrush. Neck: The neck is supple without significant lymphadenopathy or thyromegaly. Lungs: Good bilateral air entry without significant crackles or wheezing. There is no significant bronchial sounds. There is no egophony or dullness. Heart: Regular rate and rhythm with an audible S1-S2, no S3 no S4. There is no significant murmur click or rub, PMI was nondisplaced. Abdomen: Mildly obese Positive bowel sounds soft and nontender without palpable masses or organomegaly. There was no guarding or rebound. Extremities: The upper extremities have excellent pulses they are symmetric, no significant petechiae or telangiectasia. No splinter hemorrhages were noted. Right lower extremity is intact without lesions. Left lower extremity reveals evidence of the swelling to the left foot which does not extend above the ankle however there is a somewhat dense erythema that begins at the great toe and does spread in the center just above the ankle. There is loss of visualization of the bony landmarks and vascular structures, because of the swelling. There is ulceration present on the plantar surface of the left great toe measuring at 1.4 x 1.4 x 0.3 there is significant slough at the base, there is callus scant drainage without significant odor. She has noted there is no erythema that does ascend just above the ankle it is tender and there is no significant left inguinal lymphadenopathy and no other abnormal lymph nodes are noted at this time Neuro: Awake alert oriented to person place and time. There are no acute new gross focal sensory motor deficits. Patient has intact gross sensation to the bilateral lower extremities at the feet - Labs CBC & Chem 7: 01/19/18 06:46 01/19/18 06:46 Labs: Abnormal Lab Results - Last 24 Hours (Table) 01/19/18 01/19/18 01/19/18 Range/Units 00:42 06:46 06:46 RBC 4.20 L (4.30-5.90) m/uL Plt Count 139 L (150-450) k/uL Chloride 108 H (98-107) mmol/L Glucose 187 H (74-99) mg/dL POC Glucose (mg/dL) 216 H (75-99) mg/dL 01/19/18 01/19/18 01/19/18 Range/Units 07:02 11:16 16:55 RBC (4.30-5.90) m/uL Plt Count (150-450) k/uL Chloride (98-107) mmol/L Glucose (74-99) mg/dL POC Glucose (mg/dL) 181 H 227 H 198 H (75-99) mg/dL 01/19/18 Range/Units 20:35 RBC (4.30-5.90) m/uL Plt Count (150-450) k/uL Chloride (98-107) mmol/L Glucose (74-99) mg/dL POC Glucose (mg/dL) 203 H (75-99) mg/dL Microbiology - Last 24 Hours (Table) 01/18/18 13:40 Gram Stain - Preliminary Toe - Left First Wound Culture - Preliminary Gram Neg Bacilli Gram Neg Bacilli#2 01/17/18 21:15 Blood Culture - Preliminary Blood No Growth after 24 hours Laboratory Results WBC 5.3 k/uL (3.8-10.6) 01/19/18 06:46 RBC 4.20 m/uL (4.30-5.90) L 01/19/18 06:46 Hgb 13.1 gm/dL (13.0-17.5) 01/19/18 06:46 Hct 39.3 % (39.0-53.0) 01/19/18 06:46 MCV 93.7 fL (80.0-100.0) 01/19/18 06:46 MCH 31.2 pg (25.0-35.0) 01/19/18 06:46 MCHC 33.3 g/dL (31.0-37.0) 01/19/18 06:46 RDW 14.0 % (11.5-15.5) 01/19/18 06:46 Plt Count 139 k/uL (150-450) L 01/19/18 06:46 Neutrophils % 52 % 01/19/18 06:46 Lymphocytes % 28 % 01/19/18 06:46 Monocytes % 9 % 01/19/18 06:46 Eosinophils % 7 % 01/19/18 06:46 Basophils % 1 % 01/19/18 06:46 Neutrophils # 2.7 k/uL (1.3-7.7) 01/19/18 06:46 Lymphocytes # 1.5 k/uL (1.0-4.8) 01/19/18 06:46 Monocytes # 0.5 k/uL (0-1.0) 01/19/18 06:46 Eosinophils # 0.4 k/uL (0-0.7) 01/19/18 06:46 Basophils # 0.0 k/uL (0-0.2) 01/19/18 06:46 PT 9.8 sec (9.0-12.0) 01/17/18 21:15 INR 1.0 (<1.2) 01/17/18 21:15 APTT 22.2 sec (22.0-30.0) 01/17/18 21:15 Sodium 139 mmol/L (137-145) 01/19/18 06:46 Potassium 4.8 mmol/L (3.5-5.1) 01/19/18 06:46 Chloride 108 mmol/L (98-107) H 01/19/18 06:46 Carbon Dioxide 24 mmol/L (22-30) 01/19/18 06:46 Anion Gap 7 mmol/L 01/19/18 06:46 BUN 15 mg/dL (9-20) 01/19/18 06:46 Creatinine 0.71 mg/dL (0.66-1.25) 01/19/18 06:46 Est GFR (CKD-EPI)AfAm >90 (>60 ml/min/1.73 sqM) 01/19/18 06:46 Est GFR (CKD-EPI)NonAf >90 (>60 ml/min/1.73 sqM) 01/19/18 06:46 Glucose 187 mg/dL (74-99) H 01/19/18 06:46 POC Glucose (mg/dL) 203 mg/dL (75-99) H 01/19/18 20:35 POC Glu Director Of Clinical Trials ALISIA Serenity Adler 01/19/18 20:[address] Glu mg/dL 235 01/17/18 21:15 Hemoglobin A1c 9.8 % (4.0-6.0) H 01/17/18 21:15 Calcium 8.9 mg/dL (8.4-10.2) 01/19/18 06:46 Phosphorus 3.6 mg/dL (2.5-4.5) 01/17/18 21:15 Magnesium 1.6 mg/dL (1.6-2.3) 01/19/18 06:46 Total Bilirubin 0.3 mg/dL (0.2-1.3) 01/17/18 21:15 AST 47 U/L (17-59) 01/17/18 21:15 ALT 75 U/L (21-72) H 01/17/18 21:15 Alkaline Phosphatase 84 U/L (38-126) 01/17/18 21:15 Total Creatine Kinase 490 U/L (55-170) H 01/17/18 21:15 CK-MB (CK-2) 3.2 ng/mL (0.0-2.4) H* 01/17/18 21:15 CK-MB (CK-2) Rel Index 0.7 01/17/18 21:15 Troponin I <0.012 ng/mL (0.000-0.034) 01/17/18 21:15 Total Protein 6.4 g/dL (6.3-8.2) 01/17/18 21:15 Albumin 4.0 g/dL (3.5-5.0) 01/17/18 21:15 Vancomycin Trough 14.3 ug/mL 01/19/18 12:52 Microbiology 01/18/18 13:40 Toe - Left First Gram Stain - Preliminary 01/18/18 13:40 Toe - Left First Wound Culture - Preliminary Gram Neg Bacilli Gram Neg Bacilli#2 01/17/18 21:15 Blood Blood Culture - Preliminary No Growth after 24 hours 01/18/18 14:00 Toe - Left First Anaerobic Culture - Preliminary Assessment and Plan (1) Cellulitis Current Visit: Yes Status: Acute Code(s): L03.90 - CELLULITIS, UNSPECIFIED SNOMED Code(s): 091282040 (2) Diabetic ulcer of left foot associated with diabetes mellitus due to underlying condition, with fat layer exposed Narrative/Plan: Pleasant 37-year-old male who does have a history of diabetes with last hemoglobin A1c patient reports was about 9 relates that he's been having nonhealing ulceration to the left foot great toe plantar surface. Despite local care, and some intermittent antibiotic therapy that has not been improving. With the onset of pain, swelling and a significant cellulitis to the foot and not feeling as well as usual he presented to the emergency center and has been admitted for this progressive cellulitis that failed oral outpatient antibiotic therapy. The patient relates that's since coming to Hospital he started to feel better already. We discussed the elevation antibiotic therapy improvement of blood sugar are all helpful in the treatment of this process. For antibiotic therapy at this time while cultures are pending vancomycin has been initiated and we will also add in piperacillin tazobactam, with failure of outpatient antibiotic therapy gram-negative infection such as Pseudomonas with be considered and with the diabetic foot ulceration concerns to anaerobic pathogens also. Local wound care has been applied personally with the Aquacel silver which can be applied every other day. MRI is being requested to evaluate for underlying osteomyelitis. Patient will need some type of advanced offloading, likely will follow-up in the wound healing center for total contact casting will be applied. It has not been done in the outpatient setting will also ask for arterial Dopplers to be performed while he is in hospital. Will need to have the visual educator see him and arrange for outpatient diabetic education. If the patient has osteomyelitis he has been informed that he will need outpatient intravenous antibiotic therapy and follow-up in the wound healing Center. The cellulitis to the foot instructed related to the ulceration and failure of prior antibiotic therapy. 01/19/2018 MRI reveals osteomyelitis of the distal third of the first phalanx. Culture is in progress and show 2gram negative bacilli We'll continueZosyn for now pending final culture PICC line is requested to be used for the outpatient iintravenous antibiotic therapy likely of Invanz.this will be done at the [facility]. The patient is educated on the fact that the diabetes is the cause of the ulcer and without proper therapy will result in toe and possibly leg loss. Will see in the wound center where a TCC will be used for foot salvage. Needs better diabetic management or will fail. Current Visit: Yes Status: Acute Code(s): E08.621 - DIABETES MELLITUS DUE TO UNDERLYING CONDITION W FOOT ULCER; L97.522 - NON-PRS CHRONIC ULCER OTH PRT LEFT FOOT W FAT LAYER EXPOSED SNOMED Code(s): 158660819
[2018-01-20] MEDS: PIPERACILLIN-TAZOBACTAM 3.375 GM in DEXTROSE/WATER 1 50ML.BAG IVPB SCH ×3 (00:58→16:35)
[2018-01-20] MEDS: VANCOMYCIN 2,250 MG in SODIUM CHLORIDE 0.9% 500 ML IVPB SCH ×2 (05:22→14:24)
[2018-01-20 07:06] LABS: Glucose,Whole Blood 165 mg/dL (75-99)
[2018-01-20] MEDS: INSULIN ASPART 100 UNIT/ML 1 ML 10 ML VIAL SQ SCH ×4 (07:52→22:36)
[2018-01-20] MEDS: glipiZIDE 10 MG TAB PO SCH ×2 (07:52→17:32)
[2018-01-20] MEDS: CARVEDILOL 12.5 MG TAB PO SCH ×2 (07:53→17:32)
[2018-01-20] MEDS: PANTOPRAZOLE 40 MG TABLET PO SCH (07:53)
[2018-01-20] MEDS: metFORMIN 500 MG TAB PO SCH ×2 (07:53→17:33)
[2018-01-20] MEDS: ACARBOSE 25 MG TAB PO SCH ×2 (07:54→22:36)
[2018-01-20] MEDS: ETODOLAC 400 MG TAB PO SCH ×2 (07:54→22:36)
[2018-01-20] MEDS: ASPIRIN 81 MG PO SCH (07:54)
[2018-01-20] MEDS: LISINOPRIL 10 MG TAB PO SCH ×2 (07:55→22:37)
[2018-01-20] MEDS: NICOTINE 21MG/24HR PATCH TRANSDERM SCH (07:55)
[2018-01-20] MEDS: SODIUM CHLORIDE 0.9% 1,000 ML IV SCH (07:55)
--- NOTE | 2018-01-20 11:14 | P.PN ---
Subjective Progress Note Date: 01/20/18 37-year-old male who presented to the emergency room with a chief complaint of increased redness, swelling, and pain to his left great toe. Patient states he has had a non-healing wound to his toe since April 2017, but over the last few days it became more painful and red so he presented to the hospital for further evaluation. Patient denies fever or chills. Denies shortness of breath. Denies chest pain. Denies nausea or vomiting. The patient has a history of diabetes mellitus and myocardial infarction in 2005. He is a current cigarette smoker and reports smoking 10 cigarettes a day. X-ray left foot: Minimal spurring at the lateral first MP joint. No evidence of osteomyelitis. Calcaneal spurring. Laboratory data: WBC 8.3. Hemoglobin 13.5. Platelet count 183. Sodium 136. Potassium 4.3. BUN 22. Creatinine 0.99. Glucose 269. Phosphorus 3.6. Magnesium 1.5. AST 47. ALT 75. Total creatinine kinase 490. Troponin negative 1. The patient was started on vancomycin and IV fluids and admitted to the hospital under the care of Dr. Bailey. 01/19/2018 Patient seen and examined at the bedside with Dr. Bailey. Patient underwent MRI of left foot yesterday which revealed evidence of osteomyelitis. The patient underwent a PICC line insertion to the left arm today. Dr. Bailey debrided left toe at the bedside (see procedure note dictated by Dr. Bailey) . Patients hemoglobin A1C is 9.8%. Patient insists his blood sugars are always within normal limits at home. natural resources extension educator consulted and at the bedside to speak with patient. Social work and case management are working to obtain Medicaid for patient as he will require daily visits to the [facility] for antibiotic infusions. Female friend at the bedside expresses concerns of depression in patient. She states "Rae known him forever and I can tell he is already spiraling downhill. His attitude is changing. If he loses his toe, he will just completely give up". Friend asking for psychiatry consult. 01/20/2018 Patient seen and examined at the bedside. Patient sitting at the side of the bed eating breakfast. Denies nausea or vomiting. Appetite remains good. Patient appears to be in better spirits today. He was evaluated by Dr. Murillo yesterday due to his family friend thinking he was spiraling downhill. Depression was ruled out. Patient apparently had been making comments to his family but he states they were in a joking manner. Wound culture is in progress but preliminary reveals gram-negative bacilli x 2. Patient received PICC line yesterday. Infectious disease on consult. Once final culture is available, patient will be cleared for discharge home. Patient is currently in the process of obtaining Medicaid. Spoke with telephonic case manager, Ashok, who states if patient goes to the [facility] for daily antibiotics it will cost approximately $1000/day versus [facility] at approximately $100/day. [facility] states they can retro bill the patient 3 months if he is approved for Medicaid, however if he is not approved the more reasonable option would be [facility].site manager continues to work on discharge planning for the patient to go home with [facility] [place]. Objective - Vital Signs Vital signs: Vital Signs Temp 97.9 F 01/20/18 06:03 Pulse 74 01/20/18 06:03 Resp 18 01/20/18 06:03 BP 132/86 01/20/18 06:03 Pulse Ox 97 01/20/18 06:03 Intake & Output 01/19/18 01/20/18 01/20/18 18:59 06:59 18:59 Intake Total 360 950 Balance 360 950 Intake: Intake, IV Titration 950 Amount Piperacillin-Tazobactam 3 50 .375 gm In Dextrose/Water 1 50ml.bag @ 12.5 mls/hr IVPB Q8HR [facility] Rx#: [id number] Sodium Chloride 0.9% 1, 400 000 ml @ 50 mls/hr IV . Q20H [facility] Rx#:[id number] Vancomycin 2,250 mg In 500 Sodium Chloride 0.9% 500 ml @ 167 mls/hr IVPB Q8H [facility] Rx#:[id number] Oral 360 Other: Voiding Method Toilet Toilet Toilet # Voids 3 2 - Exam GENERAL: This is a 37-year-old male in no apparent distress at the time of examination. Pleasant and cooperative. HEENT: Head is atraumatic, normocephalic. Pupils are equal, round, and reactive to light. Sclerae anicteric. Conjunctivae are clear. Mucus membranes of the mouth are moist. Neck is supple. RESPIRATORY: Clear to ausculation. No wheezes, rales, or rhonchi. No use of accessory muscles. Patient maintaining oxygen saturation greater than 92%. No chest wall tenderness is noted on palpation or with deep breathing. CARDIOVASCULAR: Regular rate and rhythm. S1 and S2 noted. No systolic or diastolic murmur auscultated. No JVD noted. No S3 or S4 noted. GASTROINTESTINAL: No distention noted. Abdomen soft and round. Normal active bowel sounds auscultated x 4 quadrants. No pain or tenderness noted upon palpation. INTEGUMENTARY: Erythema and swelling to left great toe. Small open wound to plantar surface of left great toe. No cyanosis. No jaundice. No rashes noted. EXTREMITIES: 2+ peripheral pulses. No calf tenderness noted. NEUROLOGIC: Cranial nerves II-XII intact. PSYCHIATRIC: Awake, alert, and oriented X 3. Appropriate affect. Intact judgement and insight. - Labs CBC & Chem 7: 01/19/18 06:46 01/19/18 06:46 Labs: Abnormal Lab Results - Last 24 Hours (Table) 01/19/18 01/19/18 01/19/18 Range/Units 11:16 16:55 20:35 POC Glucose (mg/dL) 227 H 198 H 203 H (75-99) mg/dL 01/20/18 Range/Units 07:05 POC Glucose (mg/dL) 165 H (75-99) mg/dL Microbiology - Last 24 Hours (Table) 01/17/18 21:15 Blood Culture - Preliminary Blood No Growth after 48 hours 01/18/18 13:40 Gram Stain - Preliminary Toe - Left First Wound Culture - Preliminary Gram Neg Bacilli Gram Neg Bacilli#2 Assessment and Plan Plan: ASSESSMENT: Acute osteomyelitis of left great toe, preliminary cultures showing gram- negative bacilli 2 Diabetic ulcer of left great toe Diabetes mellitus, type II, uncontrolled, hemoglobin A1C 9.8% Hyperglycemia, secondary to uncontrolled diabetes mellitus Myocardial infarction in 2005 Morbid obesity: BMI 40.2 Nicotine dependence, patient is a current cigarette smoker Hypomagnesemia PLAN: Infectious disease, Dr. Guaman, on consult. Appreciate recommendations and input Continue antibiotics natural resources extension educator and dietitian on consult secondary to uncontrolled diabetes Wound care: pack left great toe wound with aquacel rope, silvadene to reddened areas, then wrap with gauze Home meds as appropriate Monitor labs GI prophylaxis: Protonix 40 mg PO Daily DVT prophylaxis: SCDs to bilateral LE Monitor vital signs and address as appropriate Continue process for approval of Medicaid Dr. Bailey will place off loading cast to left lower extremity next week ( ) at his weekly visit to the [facility] Once final culture is available, patient will be cleared for discharge home. Patient is currently in the process of obtaining Medicaid. Spoke with telephonic case manager, Ashok, who states if patient goes to the [facility] for daily antibiotics it will cost approximately $1000/day versus [facility] at approximately $100/day. [facility] states they can retro bill the patient 3 months if he is approved for Medicaid, however if he is not approved the more reasonable option would be [facility]. site manager continues to work on discharge planning for the patient to go home with [facility] infusion company. Dr. Bailey agreeable for the patient to go home with IV antibiotics vs coming to the [facility]. Nurse practitioner note has been reviewed by physician. Signing provider agrees with the documented findings, assessment, and plan of care.
[2018-01-20 11:39] LABS: Glucose,Whole Blood 197 mg/dL (75-99)
[2018-01-20] MEDS ORDERED: KETOROLAC 30 MG/ML 1 ML VIAL IVP STA (14:54)
[2018-01-20] MEDS ORDERED: MAG HYDROX/AL HYDROX/SIMETH 30 ML CUP PO PRN (14:54)
--- NOTE | 2018-01-20 15:48 | P.PN ---
Progress Note - Text Progress Note Date: 01/20/18 Nurse practitioner notified by nursing staff that patient was having chest pain. Upon evaluation, the patient states he has been having chest pain since yesterday on and off but was afraid to tell anyone. Patient states the pain is starts on the left side of his chest and goes across the middle of his chest to the right side. Patient states the pain is not worse with deep inspiration. Pain is not reproducible upon palpation. Pain does not radiate to jaw or arms. Patient denies shortness of breath. Denies diaphoresis. Patient states he does have a history of reflux. Patient states he had a heart attack in 2005 and was told it was "caused by stress". 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 He does state he had a " very weak heart muscle" at that time. He also reports his brother had cardiac problems including PPM insertion due to long pauses and he ended up passing away in his 30s due to cardiac problems. He states "I think my brother had this kind of pain when he had his heart problems". 12 lead EKG was completed revealing SR without ST depression or elevation. Troponin x 3 ordered. Maalox and Toradol ordered. Echo ordered. Will initiate cardiac telemetry for 24 hours and consult cardiology due to patients cardiac history, family history, and history of uncontrolled diabetes. Nurse practitioner note has been reviewed by physician. Signing provider agrees with the documented findings, assessment, and plan of care.
--- NOTE | 2018-01-20 16:12 | P.CRDCN ---
History of Present Illness History of present illness: Mr Alaniz is a pleasant 37-year-old male past medical history significant for diabetes mellitus, alcohol induced cardiomyopathy 2007, hypertension and morbid obesity. We have been asked to see him in consultation for chest pain. He is admitted in the hospital with osteomyelitis of the left great toe. Yesterday evening he developed a pain across his chest from left to right in the upper region of this chest. The pain is described as a discomfort that is intermittent in nature with no specific aggravating or alleviating factors. He states the pain comes at rest and has occurred approximately 3 times since yesterday. It is brief when it comes sometimes lasting less than 10 seconds and other a minute or two. He denies radiation of the pain to the arm, back, neck or jaw. He denies associated shortness of breath, nausea, vomiting, diaphoresis, palpitations or dizziness. EKG reveals sinus mechanism with no acute ST or T-wave abnormalities. Laboratory data reviewed, hemoglobin 13.1, platelets 139, sodium 139, potassium 4.8, creatinine 0.71, magnesium 1.6, cardiac enzymes negative 1. Current cardiac medications include aspirin 81 mg daily, coreg 25 mg BID and lisinopril 10 mg twice a day. He also takes full Rain, Glucotrol, metformin, acarbose. Most recent cardiac catheterization performed in 2007 revealed normal coronary arteries with evidence of cardiomyopathy LV function at that time 25-30%. At that time it was presumed this was caused by overuse of alcohol causing alcoholic cardiomyopathy. Patient states he followed with Dr. Willson for approximately 2 years until he lost his health insurance. He states by the time he last saw him in the office he told him that his heart muscle had improved back to normal. Review of Systems At the time of my exam: CONSTITUTIONAL: Denies fever. Denies chills. EYES: Denies blurred vision. Denies vision changes. Denies eye pain. EARS, NOSE, MOUTH & THROAT: Denies headache. Denies sore throat. Denies ear pain. CARDIOVASCULAR: Denies chest pain. Denies shortness of breath. Denies orthopnea. Denies PND. Denies palpitations. RESPIRATORY: Denies cough. GASTROINTESTINAL: Denies abdominal pain. Denies diarrhea. Denies constipation. Denies nausea. Denies vomiting. MUSCULOSKELETAL: Denies myalgias. INTEGUMENTARY: Denies pruitis. Denies rash. NEUROLOGIC: Denies numbness. Denies tingling. Denies weakness. PSYCHIATRIC: Denies anxiety. Denies depression. ENDOCRINE: Denies fatigue. Denies weight change. Denies polydipsia. Denies polyurina. GENITOURINARY: Denies burning, hematuria or urgency with micturation. HEMATOLOGIC: Denies history of anemia. Denies bleeding. Past Medical History Past Medical History: Diabetes Mellitus, Myocardial Infarction ([place]) Last Myocardial Infarction Date:: 2005 History of Any Multi-Drug Resistant Organisms: None Reported Past Surgical History: Heart Catheterization Additional Past Surgical History / Comment(s): left knee Past Psychological History: No Psychological Hx Reported Additional Psychological History / Comment(s): The patient is single, does have a family member that lives with him at times. He has no children. Is an intermittent tobacco smoker. Denies significant alcohol or recreational drug use. No experience. No international travel. No animal exposures Smoking Status: Current some day smoker Past Alcohol Use History: None Reported Past Drug Use History: None Reported - Past Family History Father Family Medical History: Congestive Heart Failure (CHF), CVA/TIA, Diabetes Mellitus Medications and Allergies Home Medications Medication Instructions Recorded Confirmed Type Acarbose [Precose] 25 mg PO BID 01/17/18 01/17/18 History Aspirin EC [Ecotrin Low Dose] 81 mg PO DAILY 01/17/18 01/17/18 History Carvedilol [Coreg] 25 mg PO BID 01/17/18 01/17/18 History Diclofenac Sodium [Voltaren] 75 mg PO BID 01/17/18 01/17/18 History Lisinopril [Zestril] 10 mg PO BID 01/17/18 01/17/18 History Bantam-3 Fatty Acids/Fish Oil [Fish 1 cap PO DAILY 01/17/18 01/17/18 History Oil 1,000 mg Softgel] Omeprazole 20 mg PO DAILY 01/17/18 01/17/18 History glipiZIDE [Glucotrol] 20 mg PO BID 01/17/18 01/17/18 History metFORMIN HCL 1,000 mg PO BID 01/17/18 01/17/18 History Allergies Allergy/AdvReac Type Severity Reaction Status Date / Time No Known Allergies Allergy Verified 01/17/18 20:19 Physical Exam Vitals: Vital Signs Temp Pulse Resp BP Pulse Ox 01/20/18 15:05 97.4 F L 67 15 142/63 98 01/20/18 06:03 97.9 F 74 18 132/86 97 01/19/18 20:40 97.8 F 63 18 148/69 97 01/19/18 16:30 71 16 Intake and Output 01/20/18 01/20/18 01/20/18 06:59 14:59 22:59 Intake Total 450 850 Balance 450 850 Intake: Intake, IV Titration 450 850 Amount Piperacillin-Tazobactam 3 50 50 .375 gm In Dextrose/Water 1 50ml.bag @ 12.5 mls/hr IVPB Q8HR [facility] Rx#: [id number] Sodium Chloride 0.9% 1, 400 300 000 ml @ 50 mls/hr IV . Q20H [facility] Rx#:[id number] Vancomycin 2,250 mg In 500 Sodium Chloride 0.9% 500 ml @ 167 mls/hr IVPB Q8H [facility] Rx#:[id number] Other: Voiding Method Toilet Toilet # Voids 2 Blood pressure 142/63 heart rate 67 afebrile maintaining oxygen saturation on room air GENERAL: This is a 37-year-old in no apparent distress at the time of my examination. Obese. HEENT: Head is atraumatic, normocephalic. Pupils are equal, round. Sclerae anicteric. Conjunctivae are clear. Mucous membranes of the mouth are moist. Neck is supple. There is no jugular venous distention. No carotid bruit is heard. LUNGS: Clear to auscultation no wheezes, rales or rhonchi. No chest wall tenderness is noted on palpation or with deep breathing. HEART: Regular rate and rhythm without murmurs, rubs or gallops. S1 and S2 heard. ABDOMEN: Soft, nontender. Bowel sounds are heard. No organomegaly noted. EXTREMITIES: No evidence of peripheral edema and no calf tenderness noted. Gauze wrapping noted to the left great toe. VASCULAR: Radial and dorsalis pedis pulses palpated, no evidence of clubbing. NEUROLOGIC: Patient is awake, alert and oriented x3. Results 01/19/18 06:46 01/19/18 06:46 Current Medications Generic Name Dose Route Start Last Admin Trade Name Freq PRN Reason Stop Dose Admin Acarbose 25 mg 01/18/18 09:00 01/20/18 07:54 Precose PO 25 mg BID [facility] Administration Acetaminophen 650 mg 01/18/18 08:50 Tylenol Tab PO Q4HR PRN Fever and/ or Pain Al Hydroxide/Mg Hydroxide 30 ml 01/20/18 14:54 Maalox PO Q4HR PRN GI Upset Aspirin 81 mg 01/18/18 09:00 01/20/18 07:54 Aspirin PO 81 mg DAILY [facility] Administration Calcium Carbonate/Glycine 500 mg 01/19/18 19:10 01/19/18 19:36 Tums PO 500 mg TID PRN Administration Heartburn Carvedilol 25 mg 01/18/18 09:00 01/20/18 07:53 Coreg PO 25 mg AC-BID [facility] Administration Etodolac 400 mg 01/18/18 09:00 01/20/18 07:54 Lodine PO 400 mg BID [facility] Administration Glipizide 20 mg 01/18/18 09:00 01/20/18 07:52 Glucotrol PO 20 mg AC-BID [facility] Administration Sodium Chloride 1,000 mls @ 50 mls/hr 01/18/18 14:45 01/20/18 07:55 Saline 0.9% IV 50 mls/hr .Q20H [facility] Administration Piperacillin/Tazobactam/ 50 mls @ 12.5 mls/hr 01/19/18 08:00 01/20/18 08:02 Dextrose 3.375 gm/ IV Solution IVPB 12.5 mls/hr Q8HR [facility] Administration Vancomycin HCl 2,250 mg/ 500 mls @ 167 mls/hr 01/19/18 22:00 01/20/18 14:24 Sodium Chloride IVPB 167 mls/hr Q8H [facility] Administration Insulin Aspart 0 unit 01/18/18 12:30 01/20/18 12:22 Novolog SQ 3 unit ACHS [facility] Administration Protocol Insulin Detemir 30 unit 01/19/18 21:00 01/19/18 21:27 Levemir SQ 30 unit HS [facility] Administration Lisinopril 10 mg 01/18/18 09:00 01/20/18 07:55 Zestril PO 10 mg BID [facility] Administration Metformin HCl 1,000 mg 01/18/18 09:00 01/20/18 07:53 Glucophage PO 1,000 mg AC-BID [facility] Administration Miscellaneous Information 1 each 01/18/18 08:51 Magnesium Per Protocol MISCELLANE DAILY PRN Per Protocol Protocol Miscellaneous Information 0 each 01/21/18 05:00 Vancomycin Trough Due MISCELLANE 01/21/18 05:01 DIRECTED ONE Nicotine 1 patch 01/18/18 14:30 01/20/18 07:55 Habitrol 21mg/24hr Patch TRANSDERM 1 patch DAILY [facility] Administration Pantoprazole Sodium 40 mg 01/18/18 09:00 01/20/18 07:53 Protonix PO 40 mg AC-BRKFST [facility] Administration Silver Sulfadiazine 1 applic 01/18/18 13:45 01/20/18 09:38 Silvadene Cream TOPICAL 1 applic DAILY [facility] Administration Intake and Output 01/20/18 01/20/18 01/20/18 06:59 14:59 22:59 Intake Total 450 850 Balance 450 850 Intake: Intake, IV Titration 450 850 Amount Piperacillin-Tazobactam 3 50 50 .375 gm In Dextrose/Water 1 50ml.bag @ 12.5 mls/hr IVPB Q8HR [facility] Rx#: [id number] Sodium Chloride 0.9% 1, 400 300 000 ml @ 50 mls/hr IV . Q20H [facility] Rx#:[id number] Vancomycin 2,250 mg In 500 Sodium Chloride 0.9% 500 ml @ 167 mls/hr IVPB Q8H [facility] Rx#:[id number] Other: Voiding Method Toilet Toilet # Voids 2 01/19/18 06:46 01/19/18 06:46 Assessment and Plan Assessment: ASSESSMENT Chest pain, atypical. Osteomyelitis of left great toe Hypertension Diabetes mellitus History of alcohol-induced cardiomyopathy, EF 25-30% in 2007 via cardiac catheterization. Normal coronary arteries at that time. Morbid obesity, BMI 40.2 Chronic nicotine dependence PLAN Continue to obtain serial cardiac enzymes to rule out an acute coronary event. Obtain 2-D echocardiogram and Doppler study to assess cardiac structure and function. Repeat EKG if the patient experiences chest pain. Continue with aspirin, chloride and lisinopril as previously ordered. Check lipid panel. Further recommendations to follow. Thank you kindly for this consultation. The above impression and plan of care have been discussed and directed by the signing physician. Eloisa Blanton, nurse practitioner, acting as scribe for signing physician.
[2018-01-20 17:16] LABS: Glucose,Whole Blood 142 mg/dL (75-99)
--- NOTE | 2018-01-20 17:42 | ECHOF ---
Referral Reason:chest pain, patient reports hx of [place] and low EF MEASUREMENTS -------- HEIGHT: 185.4 cm WEIGHT: 145.6 kg BP: IVSd: 0.9 cm (0.6 - 1.1) LVIDd: 4.6 cm (3.9 - 5.3) LVPWd: 1.1 cm (0.6 - 1.1) IVSs: 1.7 cm LVIDs: 1.8 cm LVPWs: 1.6 cm Ao Diam: 3.3 cm (2.0 - 3.7) AV Cusp: 2.0 cm (1.5 - 2.6) LA Diam: 4.0 cm (2.7 - 3.8) MV EXCURSION: 23.601 mm (> 18.000) MV EF SLOPE: 151 mm/s (70 - 150) EPSS: 0.8 cm MV E Silvio: 1.16 m/s MV DecT: 193 ms MV A Silvio: 0.62 m/s MV E/A Ratio: 1.88 RAP: 5.00 mmHg RVSP: 10.17 mmHg FINDINGS -------- Sinus rhythm. This was a technically difficult study with suboptimal views. The left ventricular size is normal. Left ventricular wall thickness is normal. Overall left vent ricular systolic function is normal with, an EF between 55 - 60 %. The right ventricle is normal in size. The left atrial size is normal. The right atrium is normal in size. Lumason used The aortic valve is trileaflet, and appears structurally normal. No aortic stenosis or regurgitation. There is trace mitral regurgitation. Trace tricuspid regurgitation present. The right ventricular systolic pressure, as measured by Dopp ler, is 10.17mmHg. Pulmonic valve appears structurally normal. The aortic root size is normal. Normal inferior vena cava with normal inspiratory collapse consistent with estimated right atrial pre ssure of 5 mmHg. The pericardium is normal. CONCLUSIONS -------- 1. Sinus rhythm. 2. This was a technically difficult study with suboptimal views. 3. The left ventricular size is normal. 4. Left ventricular wall thickness is normal. 5. Overall left ventricular systolic function is normal with, an EF between 55 - 60 %. 6. The right ventricle is normal in size. 7. The left atrial size is normal. 8. The right atrium is normal in size. 9. Lumason used 10. The aortic valve is trileaflet, and appears structurally normal. No aortic stenosis or regurgitat ion. 11. There is trace mitral regurgitation. 12. Trace tricuspid regurgitation present. 13. The right ventricular systolic pressure, as measured by Doppler, is 10.17mmHg. 14. Pulmonic valve appears structurally normal. 15. The aortic root size is normal. 16. Normal inferior vena cava with normal inspiratory collapse consistent with estimated right atrial pressure of 5 mmHg. 17. The pericardium is normal. DIRECTOR COLLEGE: Olive Diop RDCS
[2018-01-20] MEDS: ERTAPENEM 1 GM in SODIUM CHLORIDE 0.9% 50 ML IVPB SCH (17:52)
[2018-01-20 19:53] LABS: Glucose,Whole Blood 186 mg/dL (75-99)
[2018-01-20] MEDS: INSULIN DETEMIR 100 UNIT/ML 10 ML VIAL SQ SCH (22:37)
--- NOTE | 2018-01-20 22:56 | P.PN ---
Subjective Progress Note Date: 01/20/18 37-year-old male who has a long-standing history of diabetes, mild peripheral neuropathy and degenerative joint disease presents to hospital with worsening of pain and swelling erythema to the left foot at the great toe. Relates that he's had an ulceration present on the toe for the last many months , has been receiving some wound care and antibiotic therapy, but now has had a significant worsening of this ulceration with the onset of the pain swelling and erythema to the foot. Because of the change he presented to the emergency center and was admitted with a cellulitis of the foot. 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 He does not state that he wears diabetic boots, is not able to recall exactly how the ulceration started but has not been improving as of late. He does believe he wasn't feeling very well for a few days before coming to Hospital also although cannot relate to high-grade fever did not have chills and is not clear if his blood sugars were increasing. 01/19/2018 patient has no new complaints, has mother and friend present with many questions. Patient was not understanding that diabetes causes foot ulcers. Print out from reference is give stating as number one cause of hospitalization in the [place] for diabetics. 01/20/2018 patient is improving. His understanding the need for improved blood glucose control and for care of his ulcer. He is aware that he be following up in the wound healing Center and receiving outpatient intravenous antibiotic therapy at the [facility]. PICC line has been placed. Objective - Vital Signs Vital signs: Vital Signs Temp 97.4 F L 01/20/18 15:05 Pulse 67 01/20/18 15:05 Resp 15 01/20/18 15:05 BP 142/63 01/20/18 15:05 Pulse Ox 98 01/20/18 15:05 Intake & Output 01/20/18 01/20/18 01/21/18 06:59 18:59 06:59 Intake Total 950 850 Balance 950 850 Intake: Intake, IV Titration 950 850 Amount Piperacillin-Tazobactam 3 50 50 .375 gm In Dextrose/Water 1 50ml.bag @ 12.5 mls/hr IVPB Q8HR [facility] Rx#: [id number] Sodium Chloride 0.9% 1, 400 300 000 ml @ 50 mls/hr IV . Q20H [facility] Rx#:[id number] Vancomycin 2,250 mg In 500 500 Sodium Chloride 0.9% 500 ml @ 167 mls/hr IVPB Q8H [facility] Rx#:[id number] Other: Voiding Method Toilet Toilet # Voids 2 - Exam Pleasant 37-year-old male of a large build HEENT: Anicteric conjunctiva are pink and moist nasal mucosa grossly intact without significant lesions, there is no thrush. Neck: The neck is supple without significant lymphadenopathy or thyromegaly. Lungs: Good bilateral air entry without significant crackles or wheezing. There is no significant bronchial sounds. There is no egophony or dullness. Heart: Regular rate and rhythm with an audible S1-S2, no S3 no S4. There is no significant murmur click or rub, PMI was nondisplaced. Abdomen: Mildly obese Positive bowel sounds soft and nontender without palpable masses or organomegaly. There was no guarding or rebound. Extremities: The upper extremities have excellent pulses they are symmetric, no significant petechiae or telangiectasia. No splinter hemorrhages were noted. Right lower extremity is intact without lesions. Left lower extremity reveals evidence of the swelling to the left foot which does not extend above the ankle however there is a somewhat dense erythema that begins at the great toe and does spread in the center just above the ankle. There is loss of visualization of the bony landmarks and vascular structures, because of the swelling. There is ulceration present on the plantar surface of the left great toe measuring at 1.4 x 1.4 x 0.3 there is significant slough at the base, there is callus scant drainage without significant odor. She has noted there is no erythema that does ascend just above the ankle it is tender and there is no significant left inguinal lymphadenopathy and no other abnormal lymph nodes are noted at this time Neuro: Awake alert oriented to person place and time. There are no acute new gross focal sensory motor deficits. Patient has intact gross sensation to the bilateral lower extremities at the feet - Labs CBC & Chem 7: 01/19/18 06:46 01/19/18 06:46 Labs: Abnormal Lab Results - Last 24 Hours (Table) 01/20/18 01/20/18 01/20/18 Range/Units 07:05 11:38 17:15 POC Glucose (mg/dL) 165 H 197 H 142 H (75-99) mg/dL 01/20/18 Range/Units 19:51 POC Glucose (mg/dL) 186 H (75-99) mg/dL Microbiology - Last 24 Hours (Table) 01/18/18 13:40 Gram Stain - Final Toe - Left First Wound Culture - Final Escherichia coli Klebsiella oxytoca 01/17/18 21:15 Blood Culture - Preliminary Blood No Growth after 48 hours Laboratory Results WBC 5.3 k/uL (3.8-10.6) 01/19/18 06:46 RBC 4.20 m/uL (4.30-5.90) L 01/19/18 06:46 Hgb 13.1 gm/dL (13.0-17.5) 01/19/18 06:46 Hct 39.3 % (39.0-53.0) 01/19/18 06:46 MCV 93.7 fL (80.0-100.0) 01/19/18 06:46 MCH 31.2 pg (25.0-35.0) 01/19/18 06:46 MCHC 33.3 g/dL (31.0-37.0) 01/19/18 06:46 RDW 14.0 % (11.5-15.5) 01/19/18 06:46 Plt Count 139 k/uL (150-450) L 01/19/18 06:46 Neutrophils % 52 % 01/19/18 06:46 Lymphocytes % 28 % 01/19/18 06:46 Monocytes % 9 % 01/19/18 06:46 Eosinophils % 7 % 01/19/18 06:46 Basophils % 1 % 01/19/18 06:46 Neutrophils # 2.7 k/uL (1.3-7.7) 01/19/18 06:46 Lymphocytes # 1.5 k/uL (1.0-4.8) 01/19/18 06:46 Monocytes # 0.5 k/uL (0-1.0) 01/19/18 06:46 Eosinophils # 0.4 k/uL (0-0.7) 01/19/18 06:46 Basophils # 0.0 k/uL (0-0.2) 01/19/18 06:46 PT 9.8 sec (9.0-12.0) 01/17/18 21:15 INR 1.0 (<1.2) 01/17/18 21:15 APTT 22.2 sec (22.0-30.0) 01/17/18 21:15 Sodium 139 mmol/L (137-145) 01/19/18 06:46 Potassium 4.8 mmol/L (3.5-5.1) 01/19/18 06:46 Chloride 108 mmol/L (98-107) H 01/19/18 06:46 Carbon Dioxide 24 mmol/L (22-30) 01/19/18 06:46 Anion Gap 7 mmol/L 01/19/18 06:46 BUN 15 mg/dL (9-20) 01/19/18 06:46 Creatinine 0.71 mg/dL (0.66-1.25) 01/19/18 06:46 Est GFR (CKD-EPI)AfAm >90 (>60 ml/min/1.73 sqM) 01/19/18 06:46 Est GFR (CKD-EPI)NonAf >90 (>60 ml/min/1.73 sqM) 01/19/18 06:46 Glucose 187 mg/dL (74-99) H 01/19/18 06:46 POC Glucose (mg/dL) 186 mg/dL (75-99) H 01/20/18 19:51 POC Glu Musical Instrument Mechanic Tory Noyola 01/20/18 19:[address] Glu mg/dL 235 01/17/18 21:15 Hemoglobin A1c 9.8 % (4.0-6.0) H 01/17/18 21:15 Calcium 8.9 mg/dL (8.4-10.2) 01/19/18 06:46 Phosphorus 3.6 mg/dL (2.5-4.5) 01/17/18 21:15 Magnesium 1.7 mg/dL (1.6-2.3) 01/20/18 07:15 Total Bilirubin 0.3 mg/dL (0.2-1.3) 01/17/18 21:15 AST 47 U/L (17-59) 01/17/18 21:15 ALT 75 U/L (21-72) H 01/17/18 21:15 Alkaline Phosphatase 84 U/L (38-126) 01/17/18 21:15 Total Creatine Kinase 490 U/L (55-170) H 01/17/18 21:15 CK-MB (CK-2) 3.2 ng/mL (0.0-2.4) H* 01/17/18 21:15 CK-MB (CK-2) Rel Index 0.7 01/17/18 21:15 Troponin I <0.012 ng/mL (0.000-0.034) 01/20/18 20:01 Total Protein 6.4 g/dL (6.3-8.2) 01/17/18 21:15 Albumin 4.0 g/dL (3.5-5.0) 01/17/18 21:15 Vancomycin Trough 14.3 ug/mL 01/19/18 12:52 Microbiology 01/18/18 13:40 Toe - Left First Gram Stain - Final 01/18/18 13:40 Toe - Left First Wound Culture - Final Escherichia coli Klebsiella oxytoca 01/17/18 21:15 Blood Blood Culture - Preliminary No Growth after 48 hours 01/18/18 14:00 Toe - Left First Anaerobic Culture - Preliminary Assessment and Plan (1) Cellulitis Current Visit: Yes Status: Acute Code(s): L03.90 - CELLULITIS, UNSPECIFIED SNOMED Code(s): 742877005 (2) Diabetic ulcer of left foot associated with diabetes mellitus due to underlying condition, with fat layer exposed Narrative/Plan: Pleasant 37-year-old male who does have a history of diabetes with last hemoglobin A1c patient reports was about 9 relates that he's been having nonhealing ulceration to the left foot great toe plantar surface. Despite local care, and some intermittent antibiotic therapy that has not been improving. With the onset of pain, swelling and a significant cellulitis to the foot and not feeling as well as usual he presented to the emergency center and has been admitted for this progressive cellulitis that failed oral outpatient antibiotic therapy. The patient relates that's since coming to Hospital he started to feel better already. We discussed the elevation antibiotic therapy improvement of blood sugar are all helpful in the treatment of this process. For antibiotic therapy at this time while cultures are pending vancomycin has been initiated and we will also add in piperacillin tazobactam, with failure of outpatient antibiotic therapy gram-negative infection such as Pseudomonas with be considered and with the diabetic foot ulceration concerns to anaerobic pathogens also. Local wound care has been applied personally with the Aquacel silver which can be applied every other day. MRI is being requested to evaluate for underlying osteomyelitis. Patient will need some type of advanced offloading, likely will follow-up in the wound healing center for total contact casting will be applied. It has not been done in the outpatient setting will also ask for arterial Dopplers to be performed while he is in hospital. Will need to have the unit educator see him and arrange for outpatient diabetic education. If the patient has osteomyelitis he has been informed that he will need outpatient intravenous antibiotic therapy and follow-up in the wound healing Center. The cellulitis to the foot instructed related to the ulceration and failure of prior antibiotic therapy. 01/19/2018 MRI reveals osteomyelitis of the distal third of the first phalanx. Culture is in progress and show 2gram negative bacilli We'll continueZosyn for now pending final culture PICC line is requested to be used for the outpatient iintravenous antibiotic therapy likely of Invanz.this will be done at the [facility]. The patient is educated on the fact that the diabetes is the cause of the ulcer and without proper therapy will result in toe and possibly leg loss. Will see in the wound center where a TCC will be used for foot salvage. Needs better diabetic management or will fail. 01/20/2018 as noted patient has evidence of osteomyelitis to the left first toe distal phalanx and now culture show evidence of the Klebsiella and E. coli. No evidence of any other resistant pathogens. We will alter antibiotic therapy to Invanz which would then allow transition to his once daily outpatient intravenous antibiotic therapy over the next 6 weeks. Local wound care is with the silver product. Following the wound healing center so that a total contact cast may be applied to assist in wound healing. Current Visit: Yes Status: Acute Code(s): E08.621 - DIABETES MELLITUS DUE TO UNDERLYING CONDITION W FOOT ULCER; L97.522 - NON-PRS CHRONIC ULCER OTH PRT LEFT FOOT W FAT LAYER EXPOSED SNOMED Code(s): 845640513
[2018-01-21] MEDS: SODIUM CHLORIDE 0.9% 1,000 ML IV SCH (04:38)
[2018-01-21 04:46] LABS: Cholesterol 179 mg/dL (<200); HDL Cholesterol 29 mg/dL (40-60); LDL Cholesterol,Calculated 125 mg/dL (0-99); Triglycerides 127 mg/dL (<150)
[2018-01-21] MEDS ORDERED: VANCOMYCIN TROUGH DUE 1 EACH MISC MISCELLANE ONE (05:00)
[2018-01-21 07:51] LABS: Glucose,Whole Blood 104 mg/dL (75-99)
[2018-01-21] MEDS: LISINOPRIL 10 MG TAB PO SCH (08:04)
[2018-01-21] MEDS: ETODOLAC 400 MG TAB PO SCH (08:04)
[2018-01-21] MEDS: metFORMIN 500 MG TAB PO SCH (08:05)
[2018-01-21] MEDS: PANTOPRAZOLE 40 MG TABLET PO SCH (08:05)
[2018-01-21] MEDS: glipiZIDE 10 MG TAB PO SCH (08:05)
[2018-01-21] MEDS: ACARBOSE 25 MG TAB PO SCH (08:05)
[2018-01-21] MEDS: ASPIRIN 81 MG PO SCH (08:05)
[2018-01-21] MEDS: CARVEDILOL 12.5 MG TAB PO SCH (08:05)
[2018-01-21] MEDS: INSULIN ASPART 100 UNIT/ML 1 ML 10 ML VIAL SQ SCH ×2 (08:06→12:40)
[2018-01-21] MEDS: ERTAPENEM 1 GM in SODIUM CHLORIDE 0.9% 50 ML IVPB SCH (08:07)
[2018-01-21 08:32] VITALS: BP 148/77; RESP 18; TEMP 98
[2018-01-21] MEDS: NICOTINE 21MG/24HR PATCH TRANSDERM SCH (10:33)
--- NOTE | 2018-01-21 10:56 | P.DS ---
Providers Date of admission: 01/17/18 20:57 Expected date of discharge: 01/21/18 Attending physician: Meek Warner Consults: 01/18/18 14:07 Consult Physician Routine Consulting Provider: Jorje Guaman Consult Reason/Comments: left great toe wound Do you want consulting provider notified?: Yes 01/19/18 11:17 Consult Physician Routine Consulting Provider: Tracey Murillo Consult Reason/Comments: possible depression, family thinks patient is "spiraling downhill" Do you want consulting provider notified?: Yes 01/20/18 15:11 Consult Physician Routine Consulting Provider: Germán Santiago Consult Reason/Comments: chest pain, hx of AL Do you want consulting provider notified?: Yes Primary care physician: Meek Warner - Discharge Diagnosis(es) (1) Osteomyelitis of left foot Current Visit: Yes Status: Acute (2) Diabetes mellitus out of control Current Visit: Yes Status: Chronic (3) Cellulitis Current Visit: Yes Status: Acute (4) Diabetic ulcer of left foot associated with diabetes mellitus due to underlying condition, with fat layer exposed Current Visit: Yes Status: Acute (5) Diabetic ulcer of left great toe Current Visit: Yes Status: Acute Hospital Course: 37-year-old male who presented to the emergency room with a chief complaint of increased redness, swelling, and pain to his left great toe. Patient states he has had a non-healing wound to his toe since April 2017, but over the last few days it became more painful and red so he presented to the hospital for further evaluation. Patient denies fever or chills. Denies shortness of breath. Denies chest pain. Denies nausea or vomiting. The patient has a history of diabetes mellitus and myocardial infarction in 2005. He is a current cigarette smoker and reports smoking 10 cigarettes a day. X-ray left foot: Minimal spurring at the lateral first MP joint. No evidence of osteomyelitis. Calcaneal spurring. Laboratory data: WBC 8.3. Hemoglobin 13.5. Platelet count 183. Sodium 136. Potassium 4.3. BUN 22. Creatinine 0.99. Glucose 269. Phosphorus 3.6. Magnesium 1.5. AST 47. ALT 75. Total creatinine kinase 490. Troponin negative 1. The patient was started on vancomycin and IV fluids and admitted to the hospital under the care of Dr. Bailey. 01/19/2018 Patient seen and examined at the bedside with Dr. Bailey. Patient underwent MRI of left foot yesterday which revealed evidence of osteomyelitis. The patient underwent a PICC line insertion to the left arm today. Dr. Bailey debrided left toe at the bedside (see procedure note dictated by Dr. Bailey) . Patients hemoglobin A1C is 9.8%. Patient insists his blood sugars are always within normal limits at home. agricultural extension educator consulted and at the bedside to speak with patient. Social work and case management are working to obtain Medicaid for patient as he will require daily visits to the [facility] for antibiotic infusions. Female friend at the bedside expresses concerns of depression in patient. She states "Rae known him forever and I can tell he is already spiraling downhill. His attitude is changing. If he loses his toe, he will just completely give up". Friend asking for psychiatry consult. 01/20/2018 Patient seen and examined at the bedside. Patient sitting at the side of the bed eating breakfast. Denies nausea or vomiting. Appetite remains good. Patient appears to be in better spirits today. He was evaluated by Dr. Murillo yesterday due to his family friend thinking he was spiraling downhill. Depression was ruled out. Patient apparently had been making comments to his family but he states they were in a joking manner. Wound culture is in progress but preliminary reveals gram-negative bacilli x 2. Patient received PICC line yesterday. Infectious disease on consult. Once final culture is available, patient will be cleared for discharge home. Patient is currently in the process of obtaining Medicaid. Spoke with case packer and sealer, Ashok, who states if patient goes to the [facility] for daily antibiotics it will cost approximately $1000/day versus [facility] at approximately $100/day. [facility] states they can retro bill the patient 3 months if he is approved for Medicaid, however if he is not approved the more reasonable option would be [facility].manpower development manager continues to work on discharge planning for the patient to go home with [employer] infusion [employer]. Nurse practitioner notified by nursing staff that patient was having chest pain. Upon evaluation, the patient states he has been having chest pain since yesterday on and off but was afraid to tell anyone. Patient states the pain is starts on the left side of his chest and goes across the middle of his chest to the right side. Patient states the pain is not worse with deep inspiration. Pain is not reproducible upon palpation. Pain does not radiate to jaw or arms. Patient denies shortness of breath. Denies diaphoresis. Patient states he does have a history of reflux. Patient states he had a heart attack in 2005 and was told it was "caused by stress". He also states he followed up with his lead oracle developer until 2007 when he lost his insurance. He does state he had a " very weak heart muscle" at that time. He also reports his brother had cardiac problems including PPM insertion due to long pauses and he ended up passing away in his 30s due to cardiac problems. He states "I think my brother had this kind of pain when he had his heart problems". 12 lead EKG was completed revealing SR without ST depression or elevation. Troponin x 3 ordered. Maalox and Toradol ordered. Echo ordered. Will initiate cardiac telemetry for 24 hours and consult cardiology due to patients cardiac history, family history, and history of uncontrolled diabetes. 01/21/2018 Patient's chest pain is resolved. Serial troponins and CKs were negative. 2-D echo was normal. Cardiology viewed and cleared the patient for discharge. Wound cultures are positive for Escherichia coli and Klebsiella. Infectious disease indicates Invanz of the optimal treatment daily. Now be discharged home, follow-up with cardiology, the wound care center, and myself or my partner in the next several days. We will plan on him having Invanz IM 42 doses. He will offload his left great toe. We'll plan on a total contact cast the wound center. Patient Condition at Discharge: Fair Plan - Discharge Summary Discharge Rx Participant: No New Discharge Prescriptions: New Ertapenem [INVanz] 1 gm IM DAILY #42 vial Calcium Carbonate [Tums] 500 mg PO TID PRN chew PRN Reason: Heartburn Empagliflozin [Jardiance] 10 mg PO DAILY #30 tablet Ertapenem [INVanz] 1 gm IVPB DAILY #42 vial Linagliptin [Tradjenta] 5 mg PO DAILY #30 tab Mag Hydrox/Al Hydrox/Simeth [Maalox] 30 ml PO Q4HR PRN cup PRN Reason: Gi Upset Nicotine 21Mg/24Hr Patch [Habitrol] 1 patch TRANSDERM DAILY #14 patch Pioglitazone [Actos] 30 mg PO DAILY #30 tab Continue Marcell[place]-3 Fatty Acids/Fish Oil [Fish Oil 1,000 mg Softgel] 1 cap PO DAILY Carvedilol [Coreg] 25 mg PO BID Aspirin EC [Ecotrin Low Dose] 81 mg PO DAILY metFORMIN HCL 1,000 mg PO BID glipiZIDE [Glucotrol] 20 mg PO BID Lisinopril [Zestril] 10 mg PO BID Diclofenac Sodium [Voltaren] 75 mg PO BID Acarbose [Precose] 25 mg PO BID Omeprazole 20 mg PO DAILY Discharge Medication List Acarbose [Precose] 25 mg PO BID 01/17/18 [History] Aspirin EC [Ecotrin Low Dose] 81 mg PO DAILY 01/17/18 [History] Carvedilol [Coreg] 25 mg PO BID 01/17/18 [History] Diclofenac Sodium [Voltaren] 75 mg PO BID 01/17/18 [History] Lisinopril [Zestril] 10 mg PO BID 01/17/18 [History] Marcellus-3 Fatty Acids/Fish Oil [Fish Oil 1,000 mg Softgel] 1 cap PO DAILY [History] Omeprazole 20 mg PO DAILY 01/17/18 [History] glipiZIDE [Glucotrol] 20 mg PO BID 01/17/18 [History] metFORMIN HCL 1,000 mg PO BID 01/17/18 [History] Ertapenem [INVanz] 1 gm IM DAILY #42 vial 01/20/18 [Rx] Calcium Carbonate [Tums] 500 mg PO TID PRN chew 01/21/18 [Rx] Empagliflozin [Jardiance] 10 mg PO DAILY #30 tablet 01/21/18 [Rx] Ertapenem [INVanz] 1 gm IVPB DAILY #42 vial 01/21/18 [Rx] Linagliptin [Tradjenta] 5 mg PO DAILY #30 tab 01/21/18 [Rx] Mag Hydrox/Al Hydrox/Simeth [Maalox] 30 ml PO Q4HR PRN cup 01/21/18 [Rx] Nicotine 21Mg/24Hr Patch [Habitrol] 1 patch TRANSDERM DAILY #14 patch 01/21/18 [ Rx] Pioglitazone [Actos] 30 mg PO DAILY #30 tab 01/21/18 [Rx] Follow up Appointment(s)/Referral(s): Meek Warner Jr, DO [Primary Care Provider] - 1-2 days Wound Healing Center,. [NON-STAFF] - 1 Week Ambulatory/Diagnostic Orders: Miscellaneous Lab Order [LAB.AMB] Location: None Selected Basic Metabolic Panel [LAB.AMB] Location: None Selected Complete Blood Count w/diff [LAB.AMB] Time Frame: 1 Week, Location: None Selected Activity/Diet/Wound Care/Special Instructions: No weightbearing on to left great toe Discharge Disposition: HOME WITH HOME HEALTH SERVICES
[2018-01-21 11:15] VITALS: PULSE 50
[2018-01-21 11:41] LABS: Glucose,Whole Blood 187 mg/dL (75-99)
--- NOTE | 2018-01-21 16:11 | PN ---
PROGRESS NOTE Mr. Alaniz is a 37-year-old male who presented with infection of his toe, had remote history of cardiomyopathy that was thought to be related to alcoholism that subsequently improved. He is doing well this morning. He is denying any chest pain. His breathing has been stable. He denies any dizziness or palpitation. He underwent an echocardiogram that showed preserved ventricular size and systolic function. He continues to be at this time on Precose, aspirin, Coreg 25 mg twice a day, glipizide 20 mg twice a day, lisinopril 10 mg twice a day, metformin, nicotine patch. PHYSICAL EXAMINATION: Blood pressure 148/70 with a heart rate in the 50s. LUNGS: Clear. HEART: Regular rate and rhythm, S1, S2. No S3. No rub. ABDOMEN: Soft, nontender. EXTREMITIES: No edema. IMPRESSION: 1. Infection of the toe being treated. 2. Prior history of cardiomyopathy. 3. Infection of the toe with osteomyelitis, treated. 4. Prior history of cardiomyopathy, resolved. 5. Diabetes mellitus. 6. Chronic tobacco use. RECOMMENDATION: From the cardiac standpoint, he is stable. Will continue the present therapy and depending on his progress, further recommendation will be made. I would expect he should be able to be discharged home soon. MMODL / IJN: [id number] /
--- NOTE | 2018-01-25 10:05 | P.ARTDOP ---
Arterial Doppler LOWER EXTREMITY ARTERIAL DOPPLER: DATE OF SERVICE: 01/18/2018 Reason for study: Left foot ulcer. Doppler waveforms: Multiphasic throughout. Pulse volume recording: Normal configuration throughout. Pressure gradients: None. Ankle-brachial indices: Greater than 1 bilaterally. Toe pressures: [] on the right, [] on the left Impression: Normal study.
== END 2018-01-21 15:37 | disposition home health service (06) | DRG 638 ==
LOC: EC 19:01 → 5MS5E 20:57
PROVIDERS: ADMIT Family Medicine; ATTEND Family Medicine
PROC: 02HV33Z Insertion of Infusion Device into Superior Vena Cava, Percutaneous Approach (ICD-10-PCS; principal; 2018-01-19 10:00)
DX: E11.69 Type 2 diabetes mellitus with other specified complication (principal); I42.6 Alcoholic cardiomyopathy; L03.119 Cellulitis of unspecified part of limb; M86.172 Other acute osteomyelitis, left ankle and foot; Z68.41 Body mass index [BMI] 40.0-44.9, adult; E11.42 Type 2 diabetes mellitus with diabetic polyneuropathy; E11.621 Type 2 diabetes mellitus with foot ulcer; E11.65 Type 2 diabetes mellitus with hyperglycemia; E66.01 Morbid (severe) obesity due to excess calories; E83.42 Hypomagnesemia; F17.210 Nicotine dependence, cigarettes, uncomplicated; I11.0 Hypertensive heart disease with heart failure; I25.2 Old myocardial infarction; I50.9 Heart failure, unspecified; K21.9 Gastro-esophageal reflux disease without esophagitis; M77.32 Calcaneal spur, left foot; Z79.2 Long term (current) use of antibiotics; Z79.82 Long term (current) use of aspirin; Z79.899 Other long term (current) drug therapy; Z82.49 Family history of ischemic heart disease and other diseases of the circulatory system; Z83.3 Family history of diabetes mellitus; Z79.84 Long term (current) use of oral hypoglycemic drugs; L97.522 Non-pressure chronic ulcer of other part of left foot with fat layer exposed
CPT/HCPCS: 36415; 36569; 76937; 77001; 80048; 80053; 80061; 80202; 82550; 82553; 83036; 83735; 84100; 84484; 85025; 85610; 85730; 87040; 87070; 87075; 87077; 87186; 87205; 93005; 93306; 93922; 96365; 99285

== ENCOUNTER → 2018-04-06 | Outpatient (CLI) | payer OTHER ==
--- NOTE | 2018-04-06 13:41 | XR ---
EXAMINATION TYPE: XR foot complete RT DATE OF EXAM: 04/06/2018 CLINICAL HISTORY: Right foot pain per order. Painful bump fifth toe for 6 months per patient. TECHNIQUE: Frontal, lateral, and oblique images of the right foot are obtained. COMPARISON: None FINDINGS: There is no acute fracture/dislocation evident in the right foot. There is some deformity to the fifth proximal phalanx may reflect product of old trauma on frontal view. Flexion in the toes makes evaluation at this level slightly suboptimal. There is moderate spurring dorsal surface hindf oot and midfoot level . Curvilinear ossification near the cuboid bone likely reflects an unfused apop hysis. Mild spurring superior posterior calcaneus is noted The overlying soft tissue shows mild focal swelling lateral to fifth metatarsophalangeal joint. IMPRESSION: As above.
== END | disposition home or self-care (01) ==
LOC: RADXRMAIN 11:36
PROVIDERS: ATTEND Family Medicine
DX: M77.31 Calcaneal spur, right foot (principal); M79.89 Other specified soft tissue disorders

== ENCOUNTER → 2018-08-01 | Outpatient (CLI) | payer OTHER ==
[2018-08-01 18:15] LABS: Basophils # (A) 0.1 k/uL (0-0.2); Basophils % (A) 1 %; Eosinophils # (A) 0.7 k/uL (0-0.7); Eosinophils % (A) 9 %; HCT 46.3 % (39.0-53.0); HGB 15.1 gm/dL (13.0-17.5); Lymphocytes # (A) 2.7 k/uL (1.0-4.8); Lymphocytes % (A) 35 %; MCH 30.6 pg (25.0-35.0); MCHC 32.6 g/dL (31.0-37.0); MCV 93.9 fL (80.0-100.0); Mean Platelet Volume 7.8; Monocytes # (A) 0.6 k/uL (0-1.0); Monocytes % (A) 7 %; Neutrophils # (A) 3.6 k/uL (1.3-7.7); Neutrophils % (A) 47 %; Platelet Count 163 k/uL (150-450); RBC 4.93 m/uL (4.30-5.90); WBC 7.8 k/uL (3.8-10.6)
[2018-08-02 01:08] LABS: Albumin 4.6 g/dL (3.80-4.90); Albumin/Globulin Ratio 2.19 (1.60-3.17); Anion Gap 11.9 mmol/L (4.00-12.00); Calcium 9.5 mg/dL (8.7-10.3); Carbon Dioxide 24.1 mmol/L (21.6-31.8); Globulin 2.1 g/dL (1.6-3.3); Total Bilirubin 0.4 mg/dL (0.2-1.2); Total Protein 6.7 g/dL (6.2-8.2)
== END | disposition home or self-care (01) ==
LOC: LABWHC1 17:00
PROVIDERS: ATTEND Family Medicine
DX: E11.621 Type 2 diabetes mellitus with foot ulcer (principal); L97.509 Non-pressure chronic ulcer of other part of unspecified foot with unspecified severity; M86.9 Osteomyelitis, unspecified
CPT/HCPCS: 36415; 80053; 85025

== ENCOUNTER → 2018-08-09 | Outpatient (CLI) | payer OTHER ==
[2018-08-09 12:09] LABS: HCT 46.7 % (39.0-53.0); HGB 15.6 gm/dL (13.0-17.5); MCH 31.3 pg (25.0-35.0); MCHC 33.5 g/dL (31.0-37.0); MCV 93.5 fL (80.0-100.0); Mean Platelet Volume 7.3; Platelet Count 157 k/uL (150-450); RDW 14.2 % (11.5-15.5); WBC 5.9 k/uL (3.8-10.6)
[2018-08-09 14:13] LABS: Erythrocyte Sedimentation Rate 3 mm/hr (0-15)
[2018-08-09 16:10] LABS: C Reactive Protein <0.4 mg/dL (0.0-0.8); Calcium 9.8 mg/dL (8.7-10.3); Carbon Dioxide 20.8 mmol/L (21.6-31.8); Chloride 104 mmol/L (96-109); Glucose 208 mg/dL (70-110); Potassium 4.5 mmol/L (3.5-5.5); Sodium 135 mmol/L (135-145)
== END | disposition home or self-care (01) ==
LOC: LABWHC1 11:12
PROVIDERS: ATTEND Family Medicine
DX: E11.621 Type 2 diabetes mellitus with foot ulcer (principal)
CPT/HCPCS: 36415; 80048; 85027; 85652; 86140

== ENCOUNTER → 2019-01-22 | Outpatient (CLI) | payer OTHER | END | disposition home or self-care (01) | LOC: RADMRIMAIN 15:15 | PROVIDERS: ATTEND Family Medicine | DX: Z53.9 Procedure and treatment not carried out, unspecified reason (principal) ==

== ENCOUNTER → 2019-06-05 | Outpatient (CLI) | payer OTHER ==
--- NOTE | 2019-06-05 11:18 | ECHOS ---
STRESS ECHOCARDIOGRAM DATE OF SERVICE: 06/05/2019 INDICATIONS: Chest pain. MEDICATIONS: Metformin, lisinopril. BASELINE HEART RATE: 77 BASELINE BLOOD PRESSURE: 138/81 MAXIMUM HEART RATE: 157 MAXIMUM BLOOD PRESSURE: 213/80 85% MPHR: 153 100% MPHR: 180 METS: 10.3 MAXIMUM STAGE REACHED: III TOTAL EXERCISE TIME: 9 minutes CLINICAL INFORMATION: STRESS DATA: Heart rate 77, pressure is 138/81 mmHg. Baseline EKG showed sinus mechanism. The patient exercised on the treadmill according to Wilman protocol for a total of 9 minutes and achieved 10.3 METs. Max heart rate was 157, which is about 87% of maximum predicted heart rate. Maximum blood pressure was 213/80 mmHg. Clinically the patient developed chest discomfort as well as shortness of breath in response to exercise. The EKG did not show any significant ST or T-wave abnormalities concerning for ischemia. ECHOCARDIOGRAM IMAGES: Echo images from parasternal long axis view, short axis view, apical 4 chamber and apical 2 chamber views were obtained as the baseline images, at the peak of the heart rate as well as on recovery. The echocardiogram images showed good augmentation in the left ventricular systolic function without any evidence of wall motion abnormalities concerning for ischemia. CONCLUSION: 1. Excellent exercise tolerance. 2. Chest discomfort and shortness of breath in response to exercise. 3. Normal EKG in response to exercise. 4. Normal echocardiogram in response to exercise. MMODL / IJN: [id number] /
== END | disposition home or self-care (01) ==
LOC: RADNMMAIN 09:36
PROVIDERS: ATTEND Family Medicine
DX: R07.89 Other chest pain (principal); Z88.6 Allergy status to analgesic agent
CPT/HCPCS: 93351

== ENCOUNTER → 2022-01-30 | Outpatient (CLI) | payer OTHER ==
[2022-01-30 16:58] LABS: Basophils # (A) 0.08 X 10*3/uL (0.00-0.10); Basophils % (A) 1.2 %; Eosinophils # (A) 0.62 X 10*3/uL (0.04-0.35); Eosinophils % (A) 9.6 %; HCT 45.4 % (39.6-50.0); HGB 15.5 g/dL (13.0-17.0); Immature Grans, Automated 0.3 %; Lymphocytes # (A) 2.28 X 10*3/uL (0.90-5.00); Lymphocytes % (A) 35.1 %; MCH 30.8 pg (27.0-32.0); MCHC 34.1 g/dL (32.0-37.0); MCV 90.3 fL (80.0-97.0); Mean Platelet Volume 11.4 fL (9.5-12.2); Monocytes # (A) 0.82 X 10*3/uL (0.20-1.00); Monocytes % (A) 12.6 %; NRBC Per 100 WBC 0 /100 WBCS (0.0-0.0); Neutrophils # (A) 2.67 X 10*3/uL (1.80-7.70); Neutrophils % (A) 41.2 %; Platelet Count 177 X 10*3/uL (140-440); RBC 5.03 X 10*6/uL (4.40-5.60); RDW 12.9 % (11.5-14.5); WBC 6.49 X 10*3/uL (4.50-10.00)
[2022-01-30 17:26] LABS: ALT 69 U/L (10-49); AST 49 U/L (14-35); African American GFR (CKD) 110.5 (60.0-200.0); Albumin 4.7 g/dL (3.8-4.9); Alkaline Phosphatase 89 U/L (41-126); BUN/Creat Ratio 22.19 Ratio (12.00-20.00); Blood Urea Nitrogen 21.5 mg/dL (9.0-27.0); Calcium 9.8 mg/dL (8.7-10.3); Carbon Dioxide 22.4 mmol/L (20.0-27.5); Chloride 105 mmol/L (96-109); Chol/HDL Ratio 4.44 Ratio; Globulin 2.7 g/dL (1.6-3.3); Glucose 141 mg/dL (70-110); LDL Cholesterol,Calculated 92.8 mg/dL (0.0-131.0); Non-African American GFR(CKD) 95.3 (60.0-200.0); Potassium 4.4 mmol/L (3.5-5.5); Sodium 140 mmol/L (135-145); Total Protein 7.4 g/dL (6.2-8.2)
== END ==
LOC: LABWHC1 08:32
PROVIDERS: ATTEND Family Medicine
DX: E11.9 Type 2 diabetes mellitus without complications (principal); R53.83 Other fatigue; I10 Essential (primary) hypertension; E78.2 Mixed hyperlipidemia; Z87.891 Personal history of nicotine dependence
CPT/HCPCS: 36415; 80053; 80061; 84443; 85025

== ENCOUNTER → 2022-02-11 | Outpatient (CLI) | payer OTHER ==
--- NOTE | 2022-02-11 08:01 | US ---
EXAMINATION TYPE: US abdomen complete DATE OF EXAM: 02/11/2022 COMPARISON: NONE CLINICAL HISTORY: R14.2 BELCHING. Belching. Diabetes. TECHNIQUE: Multiple sonographic images of the abdomen are obtained. FINDINGS: EXAM MEASUREMENTS: Liver Length: 18.0 cm Gallbladder Wall: 0.23 cm Spleen: 11.3 cm Right Kidney: 12.6 x 6.4 x 5.9 cm Left Kidney: 14.4 x 6.3 x 6.0 cm OPERATIONS SUPERVISOR 2ND SHIFT NOTES: Limited due to patient body habitus and overlying bowel gas. Pancreas: Limited, appears hyperechoic. Liver: Limited. Appears enlarged and heterogeneous. Increased echogenicity and attenuation. Gallbladder: Fold seen. Hyperechoic area seen in LLD near neck: 0.9 x 0.8 x 0.9 cm. Unable to visuali ze supine. Very limited visibility. Evidence for sonographic Portillo's sign: Patient feels pain throughout the entire exam. CBD: Obscured. Spleen: Appears wnl. Right Kidney: Appears slightly enlarged. Left Kidney: Appears enlarged. No distinct masses seen. Appearance of possible column of Thai. Upper IVC: Limited. Abd Aorta: Aorta measures 3.3 cm in transverse at prox- aneurysmal. Mid and distal segments appear e ctatic. IMPRESSION: 1. Hepatomegaly with underlying hepatic steatosis. 2. I cannot exclude cholelithiasis. 3. Mild abdominal aortic aneurysm
== END | disposition home or self-care (01) ==
LOC: RADUSWWP 06:43
PROVIDERS: ATTEND Family Medicine
DX: R14.2 Eructation (principal)
CPT/HCPCS: 76700

== ENCOUNTER → 2022-02-24 | Outpatient (CLI) | payer OTHER ==
[2022-02-24 20:00] LABS: C Reactive Protein <0.30 mg/dL (0.00-0.80); Rheumatoid Factor, Qnt <10 IU/mL (0-15)
== END | disposition home or self-care (01) ==
LOC: LABWHC1 13:10
PROVIDERS: ATTEND Family Medicine
DX: R53.83 Other fatigue (principal); M25.50 Pain in unspecified joint; M25.40 Effusion, unspecified joint; Z79.899 Other long term (current) drug therapy
CPT/HCPCS: 36415; 85652; 86038; 86140; 86431

== ENCOUNTER → 2022-04-16 | Outpatient (CLI) | payer OTHER ==
--- NOTE | 2022-04-16 13:34 | CT ---
EXAMINATION TYPE: CT abdomen pelvis wo con DATE OF EXAM: 04/16/2022 COMPARISON: Correlation ultrasound 02/11/2022 HISTORY: 41-year-old male lower back pain x 2 weeks. STAT HOLD AND CALL. CT DLP: 1854.10 mGycm. Automated exposure control for dose reduction was used. TECHNIQUE: Contiguous axial scanning of the abdomen and pelvis without IV contrast. Coronal and sagit vera reconstructions performed. FINDINGS: Heart normal size without pericardial effusion. Some scattered coronary artery calcifications are pre sent. Mild bilateral gynecomastia. Lung bases clear without pleural effusion. Liver borderline in size at 17.2 cm with low-attenuation suggesting fatty infiltration. Gallbladder, adrenal glands, spleen, and pancreas show no gross abnormality by noncontrast CT. The kidneys show mild bilateral perinephric edema. This could reflect chronic kidney disease or senes cent change. No hydronephrosis. No dilated small bowel, free fluid, or free air. No mesenteric or retroperitoneal lymphadenopathy. Normal appendix. No significant stool wording. No pericolic inflammatory change. Bladder is collapsed. Prostate gland measures 4.3 cm wide. No abnormal fluid collection in the pelvis or pelvic lymphadenopathy. Left-sided pelvic phleboliths. There is DISH in the lower thoracic spine. Mild multilevel degenerative disc disease. Facet arthropat hy mid to lower lumbar spine with variable moderate neuroforaminal narrowing. IMPRESSION: 1. Borderline liver size at 17.2 cm with underlying hepatic steatosis. Correlate with LFTs, lipid pr ofile, patient risk factors. 2. Kidneys with mild bilateral perinephric edema likely senescent change. This could also reflect un derlying chronic kidney disease. Given the symmetry, underlying infection considered unlikely. Clinic ally correlate. 3. No nephrolithiasis or hydronephrosis.
== END | disposition home or self-care (01) ==
LOC: RADCTMAIN 12:45
PROVIDERS: ATTEND Family Medicine
DX: M54.50 Low back pain, unspecified (principal); R31.9 Hematuria, unspecified
CPT/HCPCS: 74176

== ENCOUNTER → 2022-05-11 | Outpatient (CLI) | payer OTHER ==
--- NOTE | 2022-05-11 09:27 | NM ---
Nuclear medicine hepatobiliary scan. HISTORY: Pain. DOSAGE: The patient received 8 ounces of Ensure Plus and 5.2 mCi of Technetium 99m Choletec. FINDINGS: There is normal hepatic extraction. The gallbladder is seen by 30 minutes. There is bilia ry to bowel clearance by 20 minutes. Ejection fraction is 60%. IMPRESSION: 1. Normal hepatobiliary exam
== END | disposition home or self-care (01) ==
LOC: RADNMMAIN 06:55
PROVIDERS: ATTEND Family Medicine
DX: K80.20 Calculus of gallbladder without cholecystitis without obstruction (principal)
CPT/HCPCS: 78226; A9537

== ENCOUNTER 2022-06-18 06:35 | Day surgery (SDC) | payer OTHER ==
[~2022-06-18 06:35] MED LIST: ACETAMINOPHEN TAB 500 MG TAB PO PRN; DEXAMETHASONE SOD PHOSPHATE 4 MG/ML 1 ML VIAL IV ONE; HEPARIN SODIUM,PORCINE/PF 5,000 UNIT/0.5 ML SYRINGE SQ PRN; HYDROmorphone 0.5 MG/0.5 ML SYRINGE IVP PRN; LACTATED RINGERS 1,000 ML IV SCH; LIDOCAINE 1% (10MG/ML) FOR IV START INTRADERMA PRN; MIDAZOLAM 2 MG/2 ML VIAL IV PRN; ceFAZolin 3 GM in SODIUM CHLORIDE 0.9% 100 ML IVPB PRN
[2022-06-18 07:08] LABS: Glucose,Whole Blood 182 mg/dL (70-110)
[2022-06-18] MEDS ORDERED: BUPIVACAINE (PF) 0.25% 30 ML VIAL SQ ONE (07:13)
[2022-06-18] MEDS: ONDANSETRON 4 MG/2 ML VIAL IVP ONE ×2 (07:19→08:47)
[2022-06-18] MEDS ORDERED: SCOPOLAMINE 1 MG/72 HR PATCH TRANSDERM ONE (07:19)
[2022-06-18] MEDS ORDERED: LIDOCAINE 2% INJ 20 MG/ML (2 ML VIAL) ONE (07:47)
[2022-06-18] MEDS ORDERED: SUCCINYLCHOLINE CHLORIDE 200 MG/10 ML VIAL IV ONE (07:47)
[2022-06-18] MEDS ORDERED: HYDROmorphone (PF) 1 MG/ML ONE (07:47)
[2022-06-18] MEDS ORDERED: PROPOFOL 10 MG/ML 20 ML VIAL IV ONE (07:47)
[2022-06-18] MEDS ORDERED: ROCURONIUM 10 MG/ML (5 ML VIAL) IV ONE (07:47)
[2022-06-18] MEDS ORDERED: fentaNYL (PF) 50 MCG/ML 2 ML AMP ONE (07:47)
[2022-06-18] MEDS ORDERED: MIDAZOLAM 2 MG/2 ML VIAL ONE (07:47)
[2022-06-18] MEDS ORDERED: KETOROLAC 15 MG/ML 1 ML VIAL ONE (07:47)
[2022-06-18] MEDS ORDERED: BUPIVACAIN-EPI 0.25%-1:200,000 30 ML VIAL SQ ONE ×2 (08:03→08:07)
[2022-06-18 08:50] VITALS: TEMP 98.6
--- NOTE | 2022-06-18 08:54 | P.OP ---
Date of Procedure: 06/18/22 Preoperative Diagnosis: Cholecystitis Postoperative Diagnosis: Cholecystitis Procedure(s) Performed: Laparoscopic cholecystectomy Anesthesia: VERONICA Surgeon: Mark Kaba Estimated Blood Loss (ml): 5 Pathology: other (Gallbladder) Condition: stable Disposition: PACU Description of Procedure: The patient was placed on the operating table. The patient received a general endotracheal tube anesthesia. The patients abdomen was prepped and draped in the usual sterile fashion. Through an infraumbilical stab incision, the fascia of the anterior abdominal wall was grasped with a pair of Kochers and then the Veress needle was placed in the peritoneal cavity. Position of the Veress needle was confirmed with positive drop test. The abdomen was then insufflated. After adequate insufflation, the 10 mm trocar was placed in the peritoneal cavity. Following this the laparoscope was placed in the peritoneal cavity. The patient was placed in the head-up, right side up position and then a 5 mm trocar was placed in the right lateral and right subcostal position under direct visualization. A 8 mm trocar was placed in the epigastric position. The gallbladder was grasped in the fundus and infundibulum. Traction on the gallbladder was placed in the lateral and the cephalad positions. The triangle of Calot was visualized.. The cystic duct was bluntly dissected until the union of the cystic duct and common bile duct was seen. A critical view of safety was achieved. The cystic duct was then divided and sealed with the Harmonic scissors. A PDS Endoloop was then placed throughout the cystic duct stump. The cystic artery divided and sealed with the Harmonic scissors. The gallbladder was then removed from the liver bed using Harmonic scissors. The gallbladder was then extracted through the epigastric port site. Operative field was checked for any bleeding spots and Harmonic scissors was used to coagulate the liver bed. The abdomen was irrigated. The trocars were removed. The skin was closed using interrupted 3-0 Vicryl suture. Dermabond dressing were applied. The patient tolerated the procedure well.
[2022-06-18 11:10] VITALS: BP 133/77; PULSE 77; RESP 17
== END 2022-06-18 11:10 | disposition home or self-care (01) ==
LOC: OR 06:35
PROVIDERS: ATTEND Surgery
DX: K80.10 Calculus of gallbladder with chronic cholecystitis without obstruction (principal); I10 Essential (primary) hypertension; E11.9 Type 2 diabetes mellitus without complications; I25.2 Old myocardial infarction; Z80.1 Family history of malignant neoplasm of trachea, bronchus and lung; Z87.891 Personal history of nicotine dependence; Z79.899 Other long term (current) drug therapy
CPT/HCPCS: 47562; J2250; J0330; J1100; J0690; J2405; J3010; J1170 ×2; J1885; J2704; J1644; J2001; 88304

== ENCOUNTER → 2023-04-28 | Outpatient (CLI) | payer BC ==
--- NOTE | 2023-04-28 08:19 | XR ---
EXAMINATION TYPE: XR lumbar spine with bend/flex DATE OF EXAM: 04/28/2023 7:42 AM CLINICAL INDICATION:Male, 42 years old with history of M47.816 SPONDYLOSIS OF LUMBAR SPINE; [facility] COMPARISON: 04/16/2022 TECHNIQUE: XR lumbar spine with bend/flex - Frontal, lateral and coned in L5-S1 lateral views of the spine. Bending and flexion views were also obtained. FINDINGS: No evidence of any acute osseous pathology. No evidence of loss of vertebral body height i s seen. There is normal alignment of the lumbar vertebral bodies. Mild scattered disc space narrowing . Multilevel marginal osteophyte formation throughout the visualized spine. There is facet joint arth ropathy throughout the spine. Scattered at least mild neural foraminal stenosis the neural foramen ap pear patent. No abnormal alignment on bending and flexion views. IMPRESSION: 1. No acute fracture. 2. Mild to moderate multilevel disc degeneration.
== END | disposition home or self-care (01) ==
LOC: LABWHC1 07:02
PROVIDERS: ATTEND Internal Medicine
DX: E11.8 Type 2 diabetes mellitus with unspecified complications (principal); R31.29 Other microscopic hematuria; M51.36 Other intervertebral disc degeneration, lumbar region
CPT/HCPCS: 36415; 72114; 83519; 83970; 84681; 86337

== ENCOUNTER → 2023-10-24 | Outpatient (CLI) | payer BC ==
--- NOTE | 2023-10-24 14:42 | XR ---
EXAMINATION TYPE: XR foot complete LT DATE OF EXAM: 10/24/2023 1:14 PM CLINICAL INDICATION:Male, 42 years old with history of M79.672 PAIN IN LEFT FOOT; COMPARISON: 01/17/2018. TECHNIQUE: XR foot complete LT examined in the AP, oblique, and lateral projections. FINDINGS: No evidence of any acute osseous pathology. No evidence of soft tissue swelling. Joints are preserve d. Severe degeneration changes worse at the first digit metatarsophalangeal joint with joint space na rrowing and osteophyte formation. Calcaneal plantar spurring and calcaneal Achilles enthesophyte form ation also present. IMPRESSION: 1. No evidence of acute fracture. 2. Severe osteoarthrosis changes of the first digit metatarsophalangeal joint. Findings have signifi cantly progressed from 2018.
== END | disposition home or self-care (01) ==
LOC: RADXRMAIN 12:56
PROVIDERS: ATTEND Internal Medicine
DX: M19.072 Primary osteoarthritis, left ankle and foot (principal)

== ENCOUNTER → 2024-05-04 | Outpatient (CLI) | payer BC ==
[2024-05-04 15:20] LABS: African American GFR (CKD) >90 (>60 ml/min/1.73 sqM); Blood Urea Nitrogen 26 mg/dL (9-20); Non-African American GFR(CKD) >90 (>60 ml/min/1.73 sqM)
--- NOTE | 2024-05-06 00:38 | CT ---
EXAMINATION TYPE: CT urogram wo/w con CT DLP: 4844 mGycm, Automated exposure control for dose reduction was used. DATE OF EXAM: 05/04/2024 3:59 PM COMPARISON: CT abdomen and pelvis 04/16/2022 CLINICAL INDICATION:Male, 43 years old with history of R31.29 OTHER MICROSCOPIC HEMATURIA; PHH, Rt si de flank pain. Groin pain. Testicular pain. Microscopic hematuria. Incontinence. Painful urination. TECHNIQUE: Urogram of the abdomen and pelvis was performed before and after the administration of 100 cc of IV c ontrast Isovue 300 contrast. Delayed imaging was performed. Coronal and sagittal reformats were perfo rmed. One or more CT dose reduction strategies were utilized during this examination. FINDINGS: GENITOURINARY: RIGHT KIDNEY AND URETER: No calculi. No hydronephrosis or hydroureter. Stable minimal perinephric fat stranding. No renal mass or other lesions. No urothelial lesions: no filling defect, dilation, stric ture or wall thickening. LEFT KIDNEY AND URETER: No calculi. No hydronephrosis or hydroureter. Stable minimal perinephric fash ioning. No renal mass or other lesions. Duplex left kidney. The ureters appear to merge at the uterov esical junction. No urothelial lesions: no filling defect, dilation, stricture or wall thickening. URINARY BLADDER: Mildly well distended. Normal, no calculi, mass or other lesions. REPRODUCTIVE: Mildly prominent prostate gland measuring 4.7 cm in transverse dimension. Medial lobe h ypertrophy which indents upon the urinary bladder base. ABDOMEN LIVER: Unremarkable. GALLBLADDER AND BILE DUCTS: Gallbladder surgically absent. No biliary duct dilatation. Punctate 3 mm calculus in the region of the gallbladder fossa. May represent a dropped gallstone or remnant cystic duct with calculus. PANCREAS: Unremarkable. SPLEEN: Unremarkable. ADRENAL GLANDS: Unremarkable. STOMACH AND BOWEL: No focal bowel wall thickening or surrounding inflammatory changes. The appendix i s within normal limits.. No evidence of bowel obstruction. PERITONEUM: No evidence of pneumoperitoneum. Stable mildly enlarged 1.4 cm short axis periportal lym ph node (series 3, image 47). Consider benign due to stability from 2021. VASCULATURE: No aortic aneurysm. Pelvic phleboliths. MUSCULOSKELETAL: No acute osseous abnormalities. Mild osteoarthritic changes of both hips. Degenerati ve changes of the right SI joint with anterior bridging. Mild to moderate multilevel degenerative dis c disease. SOFT TISSUE/ABDOMINAL WALL: Unremarkable. LOWER CHEST: No significant findings. IMPRESSION: 1. No evidence of urolithiasis or renal/urothelial neoplasm. Incidental duplex left kidney. 2. Mildly prominent prostate gland with median lobe hypertrophy which indents upon the urinary bladd er base. [facility], , 05/06/2024 12:36 AM
== END | disposition home or self-care (01) ==
LOC: RADCTMAIN 14:43
PROVIDERS: ATTEND Internal Medicine
DX: N40.1 Benign prostatic hyperplasia with lower urinary tract symptoms (principal); Q63.0 Accessory kidney; R31.29 Other microscopic hematuria
CPT/HCPCS: 82565; 84520; 74178; 36415; 74400; Q9967